=== PATIENT | female | born 1955 | race Caucasian/White ===

== ENCOUNTER → 2016-08-20 | Outpatient (CLI) | payer BC | END | disposition home or self-care (01) | LOC: LABWHC1 09:41 | PROVIDERS: ATTEND Family Medicine | DX: R73.09 Other abnormal glucose (principal) | CPT/HCPCS: 36415; 82947 ==

== ENCOUNTER → 2016-10-12 | Outpatient (CLI) | payer BC ==
--- NOTE | 2016-10-13 07:38 | MM ---
Reason for exam: screening (asymptomatic). Last mammogram was performed 1 year and 3 months ago. History: Patient is postmenopausal. Benign left mammotome panel of the left breast, January 26, 2008. Benign left mammotome panel of the left breast, May 01, 2007. Took hormonal contraceptives for 2 years beginning at age 18. Physical Findings: A clinical breast exam by your physician is recommended on an annual basis and results should be correlated with mammographic findings. MG 3D Screening Mammo W/Cad Bilateral CC and MLO view(s) were taken. Prior study comparison: June 30, 2015, bilateral MG screening mammo w CAD. January 31, 2014, bilateral MG screening mammo w CAD. There are scattered fibroglandular densities. Finding: There are typically benign round, regional calcifications in the left breast. Previous mammotome biopsy in the left breast times two. There is no discrete abnormality. ASSESSMENT: Benign, BI-RAD 2 RECOMMENDATION: Routine screening mammogram of both breasts in 1 year.
== END ==
LOC: RADMAMWWP 11:30
PROVIDERS: ATTEND Obstetrics & Gynecology
DX: Z12.31 Encounter for screening mammogram for malignant neoplasm of breast (principal)
CPT/HCPCS: 77063; G0202

== ENCOUNTER → 2016-12-15 | Outpatient (CLI) | payer BC ==
[2016-12-15 09:09] LABS: CH 28.1; CHCM 33.6; HCT 43.2 % (34.0-46.0); HDW 2.65; HGB 13.7 gm/dL (11.4-16.0); MCH 26.7 pg (25.0-35.0); MCHC 31.8 g/dL (31.0-37.0); Mean Platelet Volume 7.6; RBC 5.14 m/uL (3.80-5.40); RDW 14.1 % (11.5-15.5); WBC 7.5 k/uL (3.8-10.6)
[2016-12-15 09:31] LABS: ALT 43 U/L (9-52); AST 22 U/L (14-36); Alkaline Phosphatase 96 U/L (38-126); Anion Gap 13 mmol/L; Blood Urea Nitrogen 19 mg/dL (7-17); Calcium 9.6 mg/dL (8.4-10.2); Carbon Dioxide 24 mmol/L (22-30); Chloride 100 mmol/L (98-107); Cholesterol 177 mg/dL (<200); Glucose 115 mg/dL (74-99); Magnesium 1.8 mg/dL (1.6-2.3); Non-African American GFR(MDRD) >60 (>60 ml/min/1.73 sqM); Potassium 3.7 mmol/L (3.5-5.1); Sodium 137 mmol/L (137-145); Total Bilirubin 0.5 mg/dL (0.2-1.3); Triglycerides 164 mg/dL (<150)
[2016-12-15 10:54] LABS: HDL Cholesterol 52 mg/dL (40-60)
== END | disposition home or self-care (01) ==
LOC: LABWHC1 08:26
PROVIDERS: ATTEND Family Medicine
DX: E78.00 Pure hypercholesterolemia, unspecified (principal); I10 Essential (primary) hypertension; E66.01 Morbid (severe) obesity due to excess calories
CPT/HCPCS: 36415; 80053; 80061; 83735; 84443; 85027

== ENCOUNTER → 2017-03-21 | Outpatient (CLI) | payer BC ==
--- NOTE | 2017-03-22 12:01 | NM ---
EXAMINATION TYPE: NM thyroid image w uptake DATE OF EXAM: 03/22/2017 COMPARISON: NONE HISTORY: Thyroid nodule TECHNIQUE: After the intravenous administration of 11.3 mCi Tc 99m Sodium Pertechnetate, thyroid imag ing is performed 10 minutes post injection. Thyroid iodine uptake is calculated after the oral admini stration of20.8 NM uCi I-131 capsule. FINDINGS: There is normal distribution of activity throughout the gland. The 4 hour iodine uptake is calculated at 8% (normal range 8-14%). The 24-hour iodine uptake is calculated at 21.1% (normal rang e 15-35%). IMPRESSION: 1. Normal uptake. No definite hot or cold defects within the thyroid. Correlate with ultrasound as cl inically warranted
== END | disposition home or self-care (01) ==
LOC: RADNMMAIN 10:29
PROVIDERS: ATTEND Family Medicine
DX: E04.1 Nontoxic single thyroid nodule (principal)
CPT/HCPCS: 78014; A9528; A9512

== ENCOUNTER → 2017-07-12 | Outpatient (CLI) | payer BC ==
[2017-07-12 09:27] LABS: Basophils % (A) 1 %; Eosinophils # (A) 0.1 k/uL (0-0.7); Eosinophils % (A) 1 %; HCT 39.6 % (34.0-46.0); HGB 12.9 gm/dL (11.4-16.0); Lymphocytes # (A) 2.5 k/uL (1.0-4.8); Lymphocytes % (A) 33 %; MCHC 32.7 g/dL (31.0-37.0); MCV 82.7 fL (80.0-100.0); Mean Platelet Volume 7.4; Monocytes # (A) 0.3 k/uL (0-1.0); Monocytes % (A) 4 %; Neutrophils # (A) 4.6 k/uL (1.3-7.7); Neutrophils % (A) 60 %; Platelet Count 298 k/uL (150-450); RBC 4.79 m/uL (3.80-5.40); RDW 13.9 % (11.5-15.5); WBC 7.7 k/uL (3.8-10.6)
[2017-07-12 09:36] LABS: ALT 49 U/L (9-52); AST 21 U/L (14-36); Albumin 3.7 g/dL (3.5-5.0); Alkaline Phosphatase 78 U/L (38-126); Anion Gap 12 mmol/L; Blood Urea Nitrogen 13 mg/dL (7-17); Calcium 9.1 mg/dL (8.4-10.2); Carbon Dioxide 28 mmol/L (22-30); Chloride 99 mmol/L (98-107); Cholesterol 157 mg/dL (<200); Glucose 127 mg/dL (74-99); HDL Cholesterol 49 mg/dL (40-60); LDL Cholesterol,Calculated 81 mg/dL (0-99); Potassium 4.5 mmol/L (3.5-5.1); Sodium 139 mmol/L (137-145); Total Bilirubin 0.3 mg/dL (0.2-1.3); Total Protein 6.4 g/dL (6.3-8.2); Triglycerides 136 mg/dL (<150)
[2017-07-12 17:09] LABS: Hemoglobin A1C 6.8 % (4.0-6.0)
== END | disposition home or self-care (01) ==
LOC: LABWHC1 08:35
PROVIDERS: ATTEND Family Medicine
DX: E78.5 Hyperlipidemia, unspecified (principal); I10 Essential (primary) hypertension
CPT/HCPCS: 36415; 80053; 80061; 82043; 82570; 83036; 84443; 85025

== ENCOUNTER → 2018-01-31 | Outpatient (CLI) | payer BC ==
--- NOTE | 2018-01-31 17:18 | BD ---
EXAMINATION TYPE: Axial Bone Density DATE OF EXAM: 01/31/2018 COMPARISON: 06.30.2015 CLINICAL HISTORY: 62 YR OLD FEMALE.....ICD-10 CODE: M89.9 DISORDER OF BONE Height: 59.9 Weight: 241 FRAX RISK QUESTIONS: History of Fracture in Adulthood: YES RISK FACTORS HISTORY OF: HX OF RIB FRACTURES.....> 48 YRS OLD Surgery to Spine YES FUSION WITH HARDWARE TO L4 THRU S1 When: AT AGE 60 Diet low in dairy products/other sources of calcium: NO Postmenopausal woman: YES AT AGE 48 MEDICATIONS: Additional Medications: BP MEDS, PROZAC, REFLUX MEDS, STATINS FOR CHOLESTEROL, CALCIUM AND VIT D Additional History: DIABETIC, DIET CONTROLLED EXAM MEASUREMENTS: Bone mineral densitometry was performed using the [employer] System. Bone mineral density about the R hip (g/cm2): 1.263 Bone mineral density about the L hip (g/cm2): 1.212 T Score values are as follows: -----R Neck: 0.5 -----L Neck: -0.3 -----R Total: 2.0 -----L Total: 1.6 Bone mineral density has: Decreased -1.7% since study of: 06.30.2015 Bone mineral density about the L Wrist (g/cm2): 0.642 T Score values are as follows: -----Dist. R+U: 2.8 -----Prox. R+U: 0.8 -----Radius total: 0.4 Bone mineral density FIRST SCAN OF FOREARM FOR THIS PATIENT FRAX%s: THERE IS A 9.8% CHANCE OF A MAJOR OSTEOPOROTIC FX AND A 0.3% FOR HIP FX....PROBABILITY OF F X IN 10 YRS TIME IMPRESSION: Normal (Values between +1 and -1 indicate normal bone mass). Consider repeating this study in 5 year s or sooner if there is some new clinical indication. NOTE: T-SCORE=SD OF THE YOUNG ADULT MEAN.
--- NOTE | 2018-02-02 10:56 | MM ---
Reason for exam: screening (asymptomatic). Last mammogram was performed 1 year and 4 months ago. History: Patient is postmenopausal. Benign left mammotome panel of the left breast, January 26, 2008. Benign left mammotome panel of the left breast, May 01, 2007. Took hormonal contraceptives for 2 years beginning at age 18. Physical Findings: A clinical breast exam by your physician is recommended on an annual basis and results should be correlated with mammographic findings. MG 3D Screening Mammo W/Cad Bilateral CC and MLO view(s) were taken. XCCL view(s) were taken of the right breast. Prior study comparison: October 12, 2016, bilateral MG 3d screening mammo w/cad. July 15, 2015, left breast MG 3d work up w/cad LT. There are scattered fibroglandular densities. Finding: There are typically benign round, regional calcifications in the anterior position of the left breast. Previous mammotome biopsy in the left breast. Asymmetric breast tissue in the left breast. There is no discrete abnormality. ASSESSMENT: Benign, BI-RAD 2 RECOMMENDATION: Routine screening mammogram of both breasts in 1 year.
== END | disposition home or self-care (01) ==
LOC: RADBDWWP 07:45
PROVIDERS: ATTEND Obstetrics & Gynecology
DX: Z12.31 Encounter for screening mammogram for malignant neoplasm of breast (principal); Z13.820 Encounter for screening for osteoporosis; M85.80 Other specified disorders of bone density and structure, unspecified site
CPT/HCPCS: 77063; 77067; 77080

== ENCOUNTER 2019-01-22 17:34 | Inpatient (IN) | payer MEDICARE ==
--- NOTE | 2019-01-22 17:44 | ED ---
Chest Pain HPI - General Chief Complaint: Chest Pain Stated Complaint: chest heaviness/SOB/lightheaded Time Seen by Provider: 01/22/19 17:43 Source: patient, RN notes reviewed, old records reviewed Mode of arrival: wheelchair Limitations: no limitations - History of Present Illness Initial Comments: This is a 63-year-old female the ER for evaluation. Presents today for evaluation of chest pain shows have history of risk factors for heart disease but no prior cardiac history herself. No recent travel history no sick contacts. No fever cough or congestion. Patient has not had prior significant symptoms before she is complaining of exertional shortness of breath as well. Chest pains classic left-sided. Going on for about a week MD Complaint: chest pain -: hour(s) Onset: during rest Pain Location: substernal, left chest Severity: mild Severity scale (1-10): 3 Quality: aching Improves With: nothing Worsens With: nothing Anginal Symptoms: dyspnea Treatments Prior to Arrival: none - Related Data Home Medications Medication Instructions Recorded Confirmed Albuterol Inhaler [Ventolin Hfa 2 puff INHALATION RT-QID PRN 01/22/19 01/22/19 Inhaler] Aspirin [[place] Aspirin EC] 81 mg PO DAILY 01/22/19 01/22/19 Cholecalciferol [Vitamin D3 (25 1,000 unit PO DAILY 01/22/19 01/22/19 Mcg = 1000 Iu)] Terrie C 500mg 500 mg PO DAILY 01/22/19 01/22/19 FLUoxetine HCL [PROzac] 40 mg PO DAILY 01/22/19 01/22/19 Ibuprofen [Motrin] 600 mg PO BID 01/22/19 01/22/19 Lansoprazole [Prevacid] 15 mg PO DAILY 01/22/19 01/22/19 Loratadine [Claritin] 10 mg PO DAILY 01/22/19 01/22/19 Losartan Potassium 100 mg PO DAILY 01/22/19 01/22/19 Simvastatin [Zocor] 20 mg PO DAILY 01/22/19 01/22/19 Triamterene-Hctz 37.5-25Mg 0.5 tab PO DAILY 01/22/19 01/22/19 [Maxzide 37.5-25] Ubidecarenone [Co Q-10] 100 mg PO DAILY 01/22/19 01/22/19 Vits A,C,E/Lutein/Minerals 2 tab PO DAILY 01/22/19 01/22/19 [Ocuvite with Lutein Tablet] Allergies Allergy/AdvReac Type Severity Reaction Status Date / Time No Known Allergies Allergy Verified 01/22/19 21:16 Review of Systems ROS Statement: Those systems with pertinent positive or pertinent negative responses have been documented in the HPI. ROS Other: All systems not noted in ROS Statement are negative. EKG Findings - EKG Comments: EKG Findings:: EKG shows sinus rhythm rate of 70, ID 132, QRS 100, QTC 447 Past Medical History Past Medical History: Diabetes Mellitus, GERD/Reflux, Hyperlipidemia, Hypertension Additional Past Medical History / Comment(s): retinopathy, ostopenia, busitis left hip History of Any Multi-Drug Resistant Organisms: None Reported Past Surgical History: Back Surgery Past Anesthesia/Blood Transfusion Reactions: No Reported Reaction Past Psychological History: Depression Smoking Status: Never smoker Past Alcohol Use History: None Reported Past Drug Use History: None Reported - Past Family History Mother Family Medical History: Congestive Heart Failure (CHF) Father Family Medical History: Cancer, COPD Brother(s) Family Medical History: Coronary Artery Disease (CAD) Additional Family Medical History / Comment(s): both brothers had CABG Son(s) Family Medical History: Hypertension Additional Family Medical History / Comment(s): valve replaced General Exam Limitations: no limitations General appearance: alert, in no apparent distress Head exam: Present: atraumatic, normocephalic, normal inspection Eye exam: Present: normal appearance, PERRL, EOMI. Absent: scleral icterus, conjunctival injection, periorbital swelling ENT exam: Present: normal exam, mucous membranes moist Neck exam: Present: normal inspection. Absent: tenderness, meningismus, lymphadenopathy Respiratory exam: Present: normal lung sounds bilaterally. Absent: respiratory distress, wheezes, rales, rhonchi, stridor Cardiovascular Exam: Present: regular rate, normal rhythm, normal heart sounds. Absent: systolic murmur, diastolic murmur, rubs, gallop, clicks GI/Abdominal exam: Present: soft, normal bowel sounds. Absent: distended, tenderness, guarding, rebound, rigid Extremities exam: Present: normal inspection, full ROM, normal capillary refill. Absent: tenderness, pedal edema, joint swelling, calf tenderness Back exam: Present: normal inspection Neurological exam: Present: alert, oriented X3, CN II-XII intact Psychiatric exam: Present: normal affect, normal mood Skin exam: Present: warm, dry, intact, normal color. Absent: rash Course Vital Signs 01/22/19 01/22/19 17:38 20:00 Temperature 98.5 F 98.3 F Pulse Rate 85 86 Respiratory 18 18 Rate Blood Pressure 141/84 119/69 O2 Sat by Pulse 99 97 Oximetry Chest Pain MDM - MDM 63 female the ER for evasive chest no significant cardiac risk factors patient will be admitted for cardiac observation Critical Care Time Critical Care Time: Yes Total Critical Care Time: 31 Disposition Clinical Impression: Chest pain Disposition: ADMITTED IP TO THIS HOSP Condition: Undetermined Is patient prescribed a controlled substance at d/c from ED?: No
[2019-01-22 18:38] LABS: ALT 28 U/L (9-52); AST 23 U/L (14-36); African American GFR (CKD) >90 (>60 ml/min/1.73 sqM); Albumin 4.1 g/dL (3.5-5.0); Alkaline Phosphatase 92 U/L (38-126); Anion Gap 11 mmol/L; Blood Urea Nitrogen 13 mg/dL (7-17); Calcium 9.3 mg/dL (8.4-10.2); Carbon Dioxide 24 mmol/L (22-30); Chloride 102 mmol/L (98-107); Glucose 206 mg/dL (74-99); Magnesium 1.8 mg/dL (1.6-2.3); Sodium 137 mmol/L (137-145); Total Bilirubin 0.3 mg/dL (0.2-1.3)
[2019-01-22 18:41] LABS: INR 0.9 (<1.2); Partial Thromboplastin Time 22.6 sec (22.0-30.0); Prothrombin Time 9.9 sec (9.0-12.0)
[2019-01-22 19:04] LABS: Basophils % (A) 0 %; Eosinophils # (A) 0.1 k/uL (0-0.7); Eosinophils % (A) 1 %; HCT 41.7 % (34.0-46.0); HGB 13.8 gm/dL (11.4-16.0); Lymphocytes % (A) 28 %; MCH 26.9 pg (25.0-35.0); MCHC 33.2 g/dL (31.0-37.0); MCV 81.1 fL (80.0-100.0); Mean Platelet Volume 7.8; Monocytes # (A) 0.4 k/uL (0-1.0); Monocytes % (A) 5 %; Neutrophils # (A) 4.8 k/uL (1.3-7.7); Neutrophils % (A) 65 %; Platelet Count 267 k/uL (150-450); RBC 5.14 m/uL (3.80-5.40); RDW 14.5 % (11.5-15.5); WBC 7.4 k/uL (3.8-10.6)
--- NOTE | 2019-01-22 19:15 | XR ---
EXAMINATION TYPE: XR chest 2V DATE OF EXAM: 01/22/2019 COMPARISON: NONE HISTORY: Chest heaviness and shortness of breath. TECHNIQUE: Frontal and lateral views of the chest are obtained. FINDINGS: Overlying EKG leads are present. There is no focal air space opacity, pleural effusion, or pneumothorax seen. The cardiac silhouette size is within normal limits. The osseous structures are intact. IMPRESSION: No acute cardiopulmonary process.
[2019-01-22] MEDS ORDERED: HEPARIN SODIUM,PORCINE 5,000 UNIT/ML 1 ML VIAL IV PRN (19:41)
[2019-01-22] MEDS ORDERED: NITROGLYCERIN SL TABS 0.4 MG TAB SUBLINGUAL PRN (19:41)
[2019-01-22] MEDS ORDERED: HEPARIN SODIUM,PORCINE 5,000 UNIT/ML 1 ML VIAL IV ONE (19:41)
[2019-01-22] MEDS ORDERED: ASPIRIN 81 MG PO STA (19:41)
[2019-01-22] MEDS ORDERED: HEPARIN SOD,PORK IN 0.45% NACL 25,000 UNIT in 0.45% NACL 1 250ML.BAG IV SCH (19:45)
[2019-01-22] MEDS ORDERED: ALBUTEROL NEBULIZED 2.5 MG/3 ML INHALATION PRN (21:51)
[2019-01-22] MEDS ORDERED: IBUPROFEN 600 MG TAB PO STA (22:23)
[2019-01-22] MEDS: ATORVASTATIN 10 MG TAB PO SCH (22:27)
[2019-01-23 06:50] LABS: Glucose,Whole Blood 106 mg/dL (75-99)
[2019-01-23 06:57] LABS: Mean Platelet Volume 7.8; Platelet Count 240 k/uL (150-450)
[2019-01-23 06:59] LABS: Cholesterol 147 mg/dL (<200); HDL Cholesterol 50 mg/dL (40-60); LDL Cholesterol,Calculated 65 mg/dL (0-99); Triglycerides 160 mg/dL (<150)
[2019-01-23] MEDS ORDERED: AMINOPHYLLINE 500 MG/20 ML VIAL IV PRN (08:49)
[2019-01-23] MEDS ORDERED: CAFFEINE CITRATE 60 MG/3 ML VIAL IV PRN (08:49)
[2019-01-23] MEDS ORDERED: ATORVASTATIN 80 MG TAB PO SCH (09:00)
[2019-01-23] MEDS ORDERED: SODIUM CHLORIDE 0.9% IV ONE (09:00)
[2019-01-23] MEDS ORDERED: ASPIRIN 81 MG PO SCH (09:00)
[2019-01-23] MEDS ORDERED: TRIAMTERENE-HCTZ 37.5-25MG 1 EACH TAB PO SCH (09:00)
[2019-01-23] MEDS ORDERED: ASPIRIN 325 MG TAB PO SCH (09:00)
[2019-01-23] MEDS ORDERED: DIPYRIDAMOLE IV ONE (09:00)
--- NOTE | 2019-01-23 10:22 | P.CRDCN ---
History of Present Illness History of present illness: This is a pleasant 63-year-old female past medical history significant for hypertension, dyslipidemia, gastroesophageal reflux and diet-controlled diabetes mellitus. She denies personal history of coronary artery disease however she has significant family history of premature coronary artery disease with her parents and both brothers. We have been asked to see her in [facility] secondary to chest discomfort. She states last week she was at her primary care physician's office and underwent an EKG which she was told was abnormal. She is scheduled to follow with no office with Dr. Young on February 08 secondary to the abnormal EKG. She states prior to that time she had not had any Chest discomfort or shortness of breath to speak of. EKG from the office was reviewed and reveals evidence of lead misplacement. She states yesterday she was out shopping in the morning and noticed she was becoming mildly diaphoretic with activity which is somewhat normal for her however it seemed to be excessive yesterday. Later in the day while she was at home she was walking around her yard and she started feeling short of breath and a heavy pressure sensation in the midsternal region. She thought this was possibly related to asthma so she went in the house and took a couple of puffs of her inhaler. However this did not relieve her symptoms therefore she decided to come to the hospital for further evaluation. In total her symptoms of chest discomfort lasted approximately 20 minutes and slowly started to subside in route to the hospital. She denies radiation of the discomfort to the arm, back, neck or jaw. She denies associated dizziness, palpitations, nausea, vomiting, diaphoresis or cough. Her shortness of breath persisted. Upon arrival she was given aspirin and Motrin. No further symptoms of chest discomfort or shortness of breath she is seen and examined resting comfortably in bed. EKG on admission reveals sinus mechanism with left axis deviation. Chest x-ray is negative for an acute cardiopulmonary process. Laboratory data reviewed, WBC 7.4, hemoglobin 13.8, platelets 240, sodium 137, potassium 4.0, creatinine 0.58, magnesium 1.8, cardiac enzymes negative 3, proBNP 21, LDL 65 and HDL 50. Current cardiac medications include aspirin 81 mg daily, losartan 100 mg daily, simvastatin 20 mg daily and triamterene/HCTZ 37.5/25 mg daily. At the time of my exam: CONSTITUTIONAL: Denies fever. Denies chills. EYES: Denies blurred vision. Denies vision changes. Denies eye pain. EARS, NOSE, MOUTH & THROAT: Denies headache. Denies sore throat. Denies ear pain. CARDIOVASCULAR: Denies chest pain. Denies shortness of breath. Denies orthopnea. Denies PND. Denies palpitations. RESPIRATORY: Denies cough. GASTROINTESTINAL: Denies abdominal pain. Denies diarrhea. Denies constipation. Denies nausea. Denies vomiting. MUSCULOSKELETAL: Denies myalgias. INTEGUMENTARY: Denies pruitis. Denies rash. NEUROLOGIC: Denies numbness. Denies tingling. Denies weakness. PSYCHIATRIC: Denies anxiety. Denies depression. ENDOCRINE: Denies fatigue. Denies weight change. Denies polydipsia. Denies polyurina. GENITOURINARY: Denies burning, hematuria or urgency with micturation. HEMATOLOGIC: Denies history of anemia. Denies bleeding. Blood pressure 114/67 heart rate 75 afebrile maintaining oxygen saturation on room air GENERAL: This is a 63-year-old female in no apparent distress at the time of my examination. Morbidly obese. HEENT: Head is atraumatic, normocephalic. Pupils are equal, round. Sclerae anicteric. Conjunctivae are clear. Mucous membranes of the mouth are moist. Neck is supple. There is no jugular venous distention. No carotid bruit is heard. LUNGS: Clear to auscultation no wheezes, rales or rhonchi. No chest wall tenderness is noted on palpation or with deep breathing. HEART: Regular rate and rhythm without murmurs, rubs or gallops. S1 and S2 heard. ABDOMEN: Soft, nontender. Bowel sounds are heard. No organomegaly noted. EXTREMITIES: No evidence of peripheral edema and no calf tenderness noted. VASCULAR: Radial and dorsalis pedis pulses palpated, no evidence of clubbing. NEUROLOGIC: Patient is awake, alert and oriented x3. ASSESSMENT Chest pain associated with shortness of breath, atypical for angina. An acute coronary event has been ruled out. Hypertension Dyslipidemia Diabetes mellitus Gastroesophageal reflux disease Family history of premature coronary artery disease Morbid obesity, BMI 46 PLAN An acute coronary event has been ruled out. Check d-dimer. Obtain 2-D echocardiogram and Doppler study to assess cardiac structure and function. Perform Persantine stress test to assess for reversible cardiac ischemia. Thank you kindly for this consultation. Nurse Practitioner note has been reviewed, I agree with a documented findings and plan of care. Patient was seen and examined. Past Medical History Past Medical History: Diabetes Mellitus, GERD/Reflux, Hyperlipidemia, Hypertension Additional Past Medical History / Comment(s): retinopathy, ostopenia, busitis left hip History of Any Multi-Drug Resistant Organisms: None Reported Past Surgical History: Back Surgery, Tubal Ligation Past Anesthesia/Blood Transfusion Reactions: No Reported Reaction Past Psychological History: Depression Smoking Status: Never smoker Past Alcohol Use History: None Reported Past Drug Use History: None Reported - Past Family History Mother Family Medical History: Congestive Heart Failure (CHF) Father Family Medical History: Cancer, COPD Brother(s) Family Medical History: Coronary Artery Disease (CAD) Additional Family Medical History / Comment(s): both brothers had CABG Son(s) Family Medical History: Hypertension Additional Family Medical History / Comment(s): valve replaced Medications and Allergies Home Medications Medication Instructions Recorded Confirmed Type Albuterol Inhaler [Ventolin Hfa 2 puff INHALATION RT-QID PRN 01/22/19 01/22/19 History Inhaler] Aspirin [[place] Aspirin EC] 81 mg PO DAILY 01/22/19 01/22/19 History Cholecalciferol [Vitamin D3 (25 1,000 unit PO DAILY 01/22/19 01/22/19 History Mcg = 1000 Iu)] Terrie C 500mg 500 mg PO DAILY 01/22/19 01/22/19 History FLUoxetine HCL [PROzac] 40 mg PO DAILY 01/22/19 01/22/19 History Ibuprofen [Motrin] 600 mg PO BID 01/22/19 01/22/19 History Lansoprazole [Prevacid] 15 mg PO DAILY 01/22/19 01/22/19 History Loratadine [Claritin] 10 mg PO DAILY 01/22/19 01/22/19 History Losartan Potassium 100 mg PO DAILY 01/22/19 01/22/19 History Simvastatin [Zocor] 20 mg PO DAILY 01/22/19 01/22/19 History Triamterene-Hctz 37.5-25Mg 0.5 tab PO DAILY 01/22/19 01/22/19 History [Maxzide 37.5-25] Ubidecarenone [Co Q-10] 100 mg PO DAILY 01/22/19 01/22/19 History Vits A,C,E/Lutein/Minerals 2 tab PO DAILY 01/22/19 01/22/19 History [Ocuvite with Lutein Tablet] Allergies Allergy/AdvReac Type Severity Reaction Status Date / Time No Known Allergies Allergy Verified 01/22/19 21:16 Physical Exam Vitals: Vital Signs Temp Pulse Pulse Resp BP BP Pulse Ox 01/23/19 07:58 97 01/23/19 04:00 98.4 F 75 16 114/67 99 01/22/19 23:39 98.5 F 86 18 142/72 95 01/22/19 21:05 97.6 F 72 16 151/80 97 01/22/19 20:00 98.3 F 86 18 119/69 97 01/22/19 17:38 98.5 F 85 18 141/84 99 Intake and Output 01/22/19 01/23/19 01/23/19 22:59 06:59 14:59 Other: Voiding Method Toilet Toilet # Voids 2 Weight 107.955 kg Results 01/23/19 06:28 01/22/19 18:14 Cardiac Enzymes 01/22/19 01/22/19 01/23/19 Range/Units 18:14 18:14 01:37 AST 23 (14-36) U/L Troponin I <0.012 <0.012 (0.000-0.034) ng/mL 01/23/19 Range/Units 06:28 AST (14-36) U/L Troponin I <0.012 (0.000-0.034) ng/mL Coagulation 01/22/19 01/23/19 Range/Units 18:14 01:37 PT 9.9 (9.0-12.0) sec APTT 22.6 47.2 H (22.0-30.0) sec Lipids 01/23/19 Range/Units 06:28 Triglycerides 160 H (<150) mg/dL Cholesterol 147 (<200) mg/dL HDL Cholesterol 50 (40-60) mg/dL CBC 01/22/19 01/23/19 Range/Units 18:14 06:28 WBC 7.4 (3.8-10.6) k/uL RBC 5.14 (3.80-5.40) m/uL Hgb 13.8 (11.4-16.0) gm/dL Hct 41.7 (34.0-46.0) % Plt Count 267 240 (150-450) k/uL Comprehensive Metabolic Panel 01/22/19 Range/Units 18:14 Sodium 137 (137-145) mmol/L Potassium 4.0 (3.5-5.1) mmol/L Chloride 102 (98-107) mmol/L Carbon Dioxide 24 (22-30) mmol/L BUN 13 (7-17) mg/dL Creatinine 0.58 (0.52-1.04) mg/dL Glucose 206 H (74-99) mg/dL Calcium 9.3 (8.4-10.2) mg/dL AST 23 (14-36) U/L ALT 28 (9-52) U/L Alkaline Phosphatase 92 (38-126) U/L Total Protein 7.0 (6.3-8.2) g/dL Albumin 4.1 (3.5-5.0) g/dL Current Medications Generic Name Dose Route Start Last Admin Trade Name Freq PRN Reason Stop Dose Admin Albuterol Sulfate 2.5 mg 01/22/19 21:51 Ventolin Nebulized INHALATION RT-QID PRN Shortness Of Breath Aspirin 81 mg 01/23/19 09:00 Aspirin PO DAILY [facility] Atorvastatin Calcium 10 mg 01/22/19 22:00 01/22/19 22:27 Lipitor PO 10 mg HS DUSTY Administration Fluoxetine HCl 40 mg 01/23/19 09:00 Prozac PO DAILY [facility] Heparin Sodium (Porcine) 0 unit 01/22/19 19:41 Heparin IV Q6HR PRN Low PTT Protocol Heparin Sodium/Sodium Chloride 250 mls @ 9.997 mls/hr 01/22/19 19:45 01/22/19 20:07 25,000 unit/ Sodium Chloride IV 9.26 units/kg/hr .Q24H DUSTY 9.997 mls/hr Administration Protocol 9.26 UNITS/KG/HR Loratadine 10 mg 01/23/19 09:00 Claritin PO DAILY [facility] Losartan Potassium 100 mg 01/23/19 09:00 Cozaar PO DAILY [facility] Nitroglycerin 0.4 mg 01/22/19 19:41 Nitrostat SUBLINGUAL Q5M PRN Chest Pain Triamterene/HCTZ 0.5 each 01/23/19 09:00 Maxzide-25 PO DAILY DUSTY Intake and Output 01/22/19 01/23/19 01/23/19 22:59 06:59 14:59 Other: Voiding Method Toilet Toilet # Voids 2 Weight 107.955 kg 01/23/19 06:28 01/22/19 18:14
[2019-01-23] MEDS ORDERED: AMINOPHYLLINE 250 MG/10 ML VIAL IV ONE (11:35)
[2019-01-23 12:32] LABS: Glucose,Whole Blood 112 mg/dL (75-99)
[2019-01-23] MEDS: FLUoxetine HCL 20 MG CAP PO SCH (12:37)
[2019-01-23] MEDS: LOSARTAN 50 MG TAB PO SCH (12:37)
[2019-01-23] MEDS: LORATADINE 10 MG TAB PO SCH (12:38)
--- NOTE | 2019-01-23 12:44 | NM ---
EXAMINATION TYPE: NM stress persantine cardiolit DATE OF EXAM: 01/23/2019 COMPARISON: NONE HISTORY: Chest pain TECHNIQUE: Patient received 9.7 and 26.2 mCi technetium 99m Cardiolite intravenously protocol with 61 .5 mg Persantine IV. Persantine reverse with 100 mg Aminophyllin IV. FINDINGS: Review of stress and rest SPECT images demonstrates decreased reaffirms aquatic along anterior wall o f the left ventricle on stress as compared to rest images towards the base of the heart. Gated jay sis shows normal wall motion with an estimated left ventricular ejection fraction of 60 %. IMPRESSION: Pharmacologically induced left ventricular myocardial ischemia
[2019-01-23] MEDS ORDERED: ACETAMINOPHEN TAB 325 MG TAB PO STA (13:28)
--- NOTE | 2019-01-23 13:50 | ECHOF ---
Referral Reason:cp MEASUREMENTS -------- HEIGHT: 152.4 cm WEIGHT: 108.0 kg BP: 152/84 RVIDd: 2.6 cm (< 3.3) IVSd: 1.5 cm (0.6 - 1.1) LVIDd: 3.6 cm (3.9 - 5.3) LVPWd: 1.0 cm (0.6 - 1.1) IVSs: 1.6 cm LVIDs: 2.6 cm LVPWs: 1.5 cm Ao Diam: 3.5 cm (2.0 - 3.7) AV Cusp: 2.0 cm (1.5 - 2.6) LA Diam: 3.3 cm (2.7 - 3.8) MV EXCURSION: 16.659 mm (> 18.000) MV EF SLOPE: 58 mm/s (70 - 150) EPSS: 0.6 cm MV E Shyam: 1.03 m/s MV DecT: 253 ms MV A Shyam: 0.96 m/s MV E/A Ratio: 1.07 FINDINGS -------- Sinus rhythm. This was a technically difficult study with suboptimal views. LV size, wall thickness and systolic function are normal, with an EF greater than 55%. There is mil d concentric left ventricular hypertrophy. There is normal global left ventricular contractility. The right ventricle is normal in size and function. The left atrium is normal in size. The right atrium is normal in size. Lumason used Interatrial and interventricular septum intact. The aortic valve is trileaflet, and appears structurally normal. No aortic stenosis or regurgitation. Normal appearing mitral valve. The tricuspid valve appears structurally normal. No regurgitation noted There is no evidence of p ulmonary hypertension. The pulmonic valve was not well visualized. The aortic root, ascending aorta and aortic arch are normal. The pericardium is normal. CONCLUSIONS -------- 1. Sinus rhythm. 2. This was a technically difficult study with suboptimal views. 3. LV size, wall thickness and systolic function are normal, with an EF greater than 55%. 4. There is mild concentric left ventricular hypertrophy. 5. There is normal global left ventricular contractility. 6. The right ventricle is normal in size and function. 7. The left atrium is normal in size. 8. The right atrium is normal in size. 9. Lumason used 10. Interatrial and interventricular septum intact. 11. The aortic valve is trileaflet, and appears structurally normal. No aortic stenosis or regurgitat ion. 12. Normal appearing mitral valve. 13. The tricuspid valve appears structurally normal. 14. No regurgitation noted 15. There is no evidence of pulmonary hypertension. 16. The pulmonic valve was not well visualized. 17. The aortic root, ascending aorta and aortic arch are normal. 18. The pericardium is normal. HAMMERER TAB: Jeffrey Boone RDCS
--- NOTE | 2019-01-23 14:08 | EST ---
EXERCISE STRESS AGE: 63 SEX: F HT: 60" WT: 238 PROTOCOL: Persantine Cardiolite Stress Test HEART RATE REST: 72 BLOOD PRESSURE REST: 170/90 MAXIMUM HEART RATE ACHIEVED: 92 MAXIMUM BLOOD PRESSURE: 190/85 INDICATIONS: Chest pain, shortness of breath. CLINICAL INFORMATION: Baseline EKG revealed normal sinus rhythm, leftward axis, no acute changes. With Persantine administration heart rate changed from 72-92 beats per minute, blood pressure changed from 170/90 to 190/85. EKG remained unremarkable. Patient did not have any angina. By EKG criteria, this is an unremarkable Lexiscan stress test. Patient was hypertensive. The nuclear scan results which are more pertinent will be reported by the radiologist. MMODL / IJN: [id number] /
[2019-01-23] MEDS ORDERED: ENOXAPARIN 100 MG/ML SYRINGE SQ STA (15:19)
[2019-01-23] MEDS ORDERED: ALPRAZolam 0.25 MG TAB PO PRN (15:20)
[2019-01-23] MEDS ORDERED: ALPRAZolam 0.5 MG TAB PO PRN (15:20)
[2019-01-23] MEDS: SODIUM CHLORIDE 0.9% 1,000 ML IV SCH (16:01)
[2019-01-23] MEDS: amLODIPine 5 MG TAB PO SCH (16:29)
[2019-01-23 16:40] LABS: Glucose,Whole Blood 130 mg/dL (75-99)
[2019-01-23 19:57] LABS: Glucose,Whole Blood 133 mg/dL (75-99)
--- NOTE | 2019-01-23 20:05 | P.HPIM ---
History of Present Illness H&P Date: 01/23/19 Chief Complaint: Chest pain Rebecca Holder is a 63 yo F with PMH significant for HTN, HLD, T2DM, asthma, GERD who presented to [facility] ED after experiencing substernal chest pressure yesterday. She states she was recently at her PCP office last week and had an EKG that was abnormal so had been referred to Cardiology. Over the past few months she has become more short of breath with activity, and notes two nights ago while shopping she became very short of breath and diaphoretic which resolved with rest. Yesterday pt was walking around her yard and up a hill etc and became diaphoretic and experienced substernal chest pressure so came in to the ED for evaluation. Her symptoms slowly improved with rest on the way to the hospital. She denied chest pain or pain radiating into arm or neck. Pt notes family history of heart disease in both parents and in brother. She is a n onsmoker. In the ED, EKG was unremarkable and troponin negative x3. She currently denies any chest discomfort or shortness of breath. Review of Systems All systems: negative Constitutional: Reports sweats, Denies chills, Denies fever Eyes: denies blurred vision, denies pain Ears, nose, mouth and throat: Denies headache, Denies sore throat Cardiovascular: Reports chest pain, Reports dyspnea on exertion, Denies shortness of breath Respiratory: Denies cough Gastrointestinal: Denies abdominal pain, Denies diarrhea, Denies nausea, Denies vomiting Genitourinary: Denies dysuria, Denies hematuria Musculoskeletal: Denies myalgias Integumentary: Denies pruritus, Denies rash Neurological: Denies numbness, Denies weakness Psychiatric: Denies anxiety, Denies depression Endocrine: Denies fatigue, Denies weight change Past Medical History Past Medical History: Diabetes Mellitus, GERD/Reflux, Hyperlipidemia, Hypertension Additional Past Medical History / Comment(s): retinopathy, ostopenia, busitis left hip History of Any Multi-Drug Resistant Organisms: None Reported Past Surgical History: Back Surgery Past Anesthesia/Blood Transfusion Reactions: No Reported Reaction Past Psychological History: Depression Smoking Status: Never smoker Past Alcohol Use History: None Reported Past Drug Use History: None Reported - Past Family History Mother Family Medical History: Congestive Heart Failure (CHF) Father Family Medical History: Cancer, COPD Brother(s) Family Medical History: Coronary Artery Disease (CAD) Additional Family Medical History / Comment(s): both brothers had CABG Son(s) Family Medical History: Hypertension Additional Family Medical History / Comment(s): valve replaced Medications and Allergies Home Medications Medication Instructions Recorded Confirmed Type Albuterol Inhaler [Ventolin Hfa 2 puff INHALATION RT-QID PRN 01/22/19 01/22/19 History Inhaler] Aspirin [[place] Aspirin EC] 81 mg PO DAILY 01/22/19 01/22/19 History Cholecalciferol [Vitamin D3 (25 1,000 unit PO DAILY 01/22/19 01/22/19 History Mcg = 1000 Iu)] Terrie C 500mg 500 mg PO DAILY 01/22/19 01/22/19 History FLUoxetine HCL [PROzac] 40 mg PO DAILY 01/22/19 01/22/19 History Ibuprofen [Motrin] 600 mg PO BID 01/22/19 01/22/19 History Lansoprazole [Prevacid] 15 mg PO DAILY 01/22/19 01/22/19 History Loratadine [Claritin] 10 mg PO DAILY 01/22/19 01/22/19 History Losartan Potassium 100 mg PO DAILY 01/22/19 01/22/19 History Simvastatin [Zocor] 20 mg PO DAILY 01/22/19 01/22/19 History Triamterene-Hctz 37.5-25Mg 0.5 tab PO DAILY 01/22/19 01/22/19 History [Maxzide 37.5-25] Ubidecarenone [Co Q-10] 100 mg PO DAILY 01/22/19 01/22/19 History Vits A,C,E/Lutein/Minerals 2 tab PO DAILY 01/22/19 01/22/19 History [Ocuvite with Lutein Tablet] Allergies Allergy/AdvReac Type Severity Reaction Status Date / Time No Known Allergies Allergy Verified 01/22/19 21:16 Physical Exam Vitals: Vital Signs Temp Pulse Pulse Resp BP BP Pulse Ox 01/23/19 18:58 98.1 F 80 16 126/77 95 01/23/19 16:00 98.3 F 74 16 128/74 99 01/23/19 12:30 98.1 F 71 18 150/104 96 01/23/19 12:00 18 01/23/19 08:00 97.5 F L 72 18 152/84 96 01/23/19 07:58 97 01/23/19 04:00 98.4 F 75 16 114/67 99 01/22/19 23:39 98.5 F 86 18 142/72 95 01/22/19 21:05 97.6 F 72 16 151/80 97 01/22/19 20:00 98.3 F 86 18 119/69 97 Intake and Output 01/23/19 01/23/19 01/23/19 06:59 14:59 22:59 Other: Voiding Method Toilet Toilet Toilet # Voids 2 Constitutional: well developed, well nourished, NAD Head: normocephalic, atraumatic ENT: TMs clear shruthi, nose normal, mucus membranes moist Neck: supple, no thyromegaly, no JVD CV: RRR, no murmur Lungs: clear throughout, normal respiratory effort Abd: soft, nontender, no organomegaly Ext: no cyanosis, clubbing or edema Lymph: no cervical or axillary LAD Neuro: alert and oriented x3, normal mood and affect Results CBC & Chem 7: 01/23/19 06:28 01/22/19 18:14 Labs: Abnormal Lab Results - Last 24 Hours (Table) 01/23/19 01/23/19 01/23/19 Range/Units 01:37 06:28 06:49 APTT 47.2 H (22.0-30.0) sec D-Dimer (<0.60) mg/L FEU POC Glucose (mg/dL) 106 H (75-99) mg/dL Triglycerides 160 H (<150) mg/dL 01/23/19 01/23/19 01/23/19 Range/Units 12:30 12:54 16:38 APTT (22.0-30.0) sec D-Dimer 1.35 H (<0.60) mg/L FEU POC Glucose (mg/dL) 112 H 130 H (75-99) mg/dL Triglycerides (<150) mg/dL Thrombosis Risk Factor Assmnt - Choose All That Apply Any of the Below Risk Factors Present?: Yes Each Factor Represents 1 point: Obesity (BMI >25) Other Risk Factors: Yes Each Risk Factor Represents 2 Points: Age 61-74 years Other congenital or acquired thrombophilia - If yes, enter type in comment: No Thrombosis Risk Factor Assessment Total Risk Factor Score: 3 Thrombosis Risk Factor Assessment Level: Moderate Risk Assessment and Plan (1) Chest pain Current Visit: Yes Status: Acute Code(s): R07.9 - CHEST PAIN, UNSPECIFIED SNOMED Code(s): 26647898 Plan: 1. Chest pain. ACS ruled out. Pt for stress test today per cardiology. Continue cozaar and statin
[2019-01-23] MEDS: METOPROLOL TARTRATE 25 MG TAB PO SCH (20:12)
[2019-01-23] MEDS: ATORVASTATIN 10 MG TAB PO SCH (20:12)
[2019-01-24] MEDS: SODIUM CHLORIDE 0.9% 1,000 ML IV SCH ×2 (06:09→17:12)
[2019-01-24] MEDS: LOSARTAN 50 MG TAB PO SCH (06:16)
[2019-01-24] MEDS: METOPROLOL TARTRATE 25 MG TAB PO SCH ×2 (06:16→17:11)
[2019-01-24] MEDS: LORATADINE 10 MG TAB PO SCH (06:16)
[2019-01-24] MEDS: ATORVASTATIN 10 MG TAB PO SCH (06:17)
[2019-01-24] MEDS: FLUoxetine HCL 20 MG CAP PO SCH (06:17)
[2019-01-24] MEDS: amLODIPine 5 MG TAB PO SCH (06:17)
[2019-01-24 06:49] LABS: Glucose,Whole Blood 133 mg/dL (75-99)
[2019-01-24 08:02] VITALS: RESP 18
[2019-01-24] MEDS ORDERED: LIDOCAINE 1% INJ 10MG/ML (20 ML MDV) ONE (08:52)
[2019-01-24] MEDS ORDERED: HEPARIN SODIUM 1,000 UN/ML (10ML VL) ONE (08:52)
[2019-01-24] MEDS ORDERED: VERAPAMIL 2.5 MG/ML 2 ML AMP ONE (08:52)
[2019-01-24] MEDS ORDERED: IV FLUID CONTINUATION 850 ML IV ONE (08:55)
[2019-01-24] MEDS ORDERED: ASPIRIN 325 MG TAB PO SCH (09:00)
[2019-01-24] MEDS ORDERED: MIDAZOLAM (PF) 2 MG/2 ML VIAL IV ONE (09:24)
[2019-01-24] MEDS ORDERED: LIDOCAINE 1% INJ 10MG/ML (20 ML MDV) SQ ONE (09:27)
[2019-01-24] MEDS: VERAPAMIL SYRINGE (5 MG/10 ML) INTRAARTER ONE ×2 (09:29→09:45)
[2019-01-24] MEDS ORDERED: HEPARIN SODIUM 1,000 UN/ML (10ML VL) IV ONE (09:31)
[2019-01-24] MEDS ORDERED: NITROGLYCERIN 1000MCG/10ML SYRINGE INTRACORON ONE (09:39)
[2019-01-24] MEDS ORDERED: IOPAMIDOL-370 100ML BTL INJ ONE (09:49)
[2019-01-24] MEDS ORDERED: RX INFO: IV CONTRAST WAS GIVEN 1 EACH MISC MISCELLANE PRN (09:52)
[2019-01-24 10:15] VITALS: TEMP 97.7
[2019-01-24 11:46] LABS: Glucose,Whole Blood 166 mg/dL (75-99)
[2019-01-24 16:37] VITALS: BP 125/69; PULSE 60
[2019-01-24 16:38] LABS: Glucose,Whole Blood 120 mg/dL (75-99)
--- NOTE | 2019-01-24 17:25 | CC ---
CARDIAC CATHETERIZATION REPORT DATE OF SERVICE: 01/24/2019 PROCEDURE: Left heart catheterization and coronary angiography. PERFORMED BY: Dr. Kristi Toure. Moderate Conscious sedation for 17 min. CLINICAL INFORMATION: Mrs. Rebecca Holder is a 63-year-old lady with type 2 diabetes, hypertension and obesity who came into the hospital with chest pain, had a Lexiscan stress test which revealed ischemia in the anterior wall and was advised cardiac catheterization after due discussion regarding risks, benefits and options. PROCEDURE NOTE: Under local anesthesia and strict aseptic precautions, a 6-Uzbek introducer was placed in the right radial artery. An Ultimate 1 catheter was used to perform selective coronary angiography of the left coronary artery. Using a JR4 catheter, I performed selective coronary angiography of the right coronary artery. There was some spasm of the ostium of the RCA. Intracoronary nitroglycerin was given and the spasm resolved. There was a residual proximal stenosis of about 30% or so. The LV pressures were checked using a pigtail catheter. LV gram was not performed. The sheath was taken out and TR band applied as per protocol. She was sent to the room in stable condition. Saturation of the fingers of the right hand was 95%. CARDIAC CATHETERIZATION FINDINGS: The left ventricular end-diastolic pressure was 12 to 13 mmHg without any gradient across the aortic valve. CORONARY ANGIOGRAPHY FINDINGS: RIGHT CORONARY ARTERY: This is a dominant vessel. Very proximally, right after the ostium, there is about a 35% narrowing where there was some spasm with the catheter cannulation, but with nitroglycerin the spasm resolved. RCA has a good caliber and distally bifurcates into a large PLV and PDA, both of which supply a fair amount of myocardium. No significant disease. The dominant RCA therefore has a proximal lesion of 30% to 35% with some spasm that resolved with nitroglycerin intracoronary. LEFT MAIN CORONARY ARTERY: Long, patent, disease-free vessel that bifurcates into LAD and circumflex. No significant disease in the left main coronary artery. LEFT ANTERIOR DESCENDING CORONARY ARTERY: Good-caliber vessel extends along the anterior wall, gives off a good-sized diagonal branch in the mid portion, runs all the way to the apex giving septal and diagonal branches. No significant disease in the LAD system. LEFT POSTERIOR CIRCUMFLEX CORONARY ARTERY: Technically a nondominant vessel, gives off a high first obtuse marginal and then gives 2 additional branches that run laterally. These have minor irregularities. No significant disease. The nondominant circumflex therefore has minor irregularities, no significant disease. Left ventriculogram was not performed. FINAL IMPRESSION: This patient has normal filling pressures. No gradient across the aortic valve. She has a right-dominant system with 35% proximal RCA stenosis with catheter-induced spasm that resolved with nitroglycerin. Left system has no significant disease. RECOMMENDATIONS: Findings were discussed with the patient and family. I am recommending aggressive medical therapy with lipid-lowering strategies and increasing the dose of Lipitor and continue the beta marissa. She can be discharged later on today if she remains stable, and I will see her in the office in the next one week. MMODL / IJN: [id number] / EFRAIN
[2019-01-24] MEDS ORDERED: ATORVASTATIN 40 MG TAB PO SCH (21:00)
[2019-01-24] MEDS ORDERED: ATORVASTATIN 10 MG TAB PO SCH (21:00)
--- NOTE | 2019-01-24 22:15 | P.DS ---
Providers Date of admission: 01/23/19 13:24 Expected date of discharge: 01/24/19 Attending physician: Nicho Coulter MD Consults: 01/22/19 19:41 Consult Physician Urgent Consulting Provider: Lul Young Consult Reason/Comments: cp Do you want consulting provider notified?: Yes Primary care physician: Kathrin Jacobson - Discharge Diagnosis(es) (1) Chest pain Status: Acute (2) Coronary artery disease Status: Acute Hospital Course: Rebecca Holder is a 63 yo F with PMH significant for HTN, HLD, T2DM, asthma, GERD who presented to [facility] ED after experiencing substernal chest pressure yesterday. She states she was recently at her PCP office last week and had an EKG that was abnormal so had been referred to Cardiology. Over the past few months she has become more short of breath with activity, and notes two nights ago while shopping she became very short of breath and diaphoretic which resolved with rest. Yesterday pt was walking around her yard and up a hill etc and became diaphoretic and experienced substernal chest pressure so came in to the ED for evaluation. Her symptoms slowly improved with rest on the way to the hospital. She denied chest pain or pain radiating into arm or neck. Pt notes family history of heart disease in both parents and in brother. She is a non smoker. In the ED, EKG was unremarkable and troponin negative x3. She currently denies any chest discomfort or shortness of breath. Pt was admitted to observation to undergo stress test. She underwent a nuclear stress test which did show reversible L ventricular ischemia with pharmacologic stimulation. Pt then underwent cardiac cath on 01/24 which did not reveal any critical lesion but did show R dominant system with 35% RCA proximal stenosis. She was started on lipitor and toprol. Pt was discharged in stable condition without any further episodes of chest pain or shortness of breath. She will follow up with PCP and Cardiology upon discharge. Patient Condition at Discharge: Stable Plan - Discharge Summary Discharge Rx Participant: No New Discharge Prescriptions: New Metoprolol Tartrate [Lopressor] 25 mg PO BID #180 tab Atorvastatin [Lipitor] 40 mg PO HS #90 tab amLODIPine [Norvasc] 5 mg PO DAILY #90 tab Discontinued Simvastatin [Zocor] 20 mg PO DAILY Triamterene-Hctz 37.5-25Mg [Maxzide 37.5-25] 0.5 tab PO DAILY No Action Vits A,C,E/Lutein/Minerals [Ocuvite with Lutein Tablet] 2 tab PO DAILY Ubidecarenone [Co Q-10] 100 mg PO DAILY Cholecalciferol [Vitamin D3 (25 Mcg = 1000 Iu)] 1,000 unit PO DAILY Aspirin [[place] Aspirin EC] 81 mg PO DAILY Albuterol Inhaler [Ventolin Hfa Inhaler] 2 puff INHALATION RT-QID PRN PRN Reason: Shortness Of Breath Losartan Potassium 100 mg PO DAILY Lansoprazole [Prevacid] 15 mg PO DAILY Ibuprofen [Motrin] 600 mg PO BID FLUoxetine HCL [PROzac] 40 mg PO DAILY Loratadine [Claritin] 10 mg PO DAILY Terrie C 500mg 500 mg PO DAILY Discharge Medication List Albuterol Inhaler [Ventolin Hfa Inhaler] 2 puff INHALATION RT-QID PRN 01/22/19 [History] Aspirin [[place] Aspirin EC] 81 mg PO DAILY 01/22/19 [History] Cholecalciferol [Vitamin D3 (25 Mcg = 1000 Iu)] 1,000 unit PO DAILY 01/22/19 [History] Terrie C 500mg 500 mg PO DAILY 01/22/19 [History] FLUoxetine HCL [PROzac] 40 mg PO DAILY 01/22/19 [History] Ibuprofen [Motrin] 600 mg PO BID 01/22/19 [History] Lansoprazole [Prevacid] 15 mg PO DAILY 01/22/19 [History] Loratadine [Claritin] 10 mg PO DAILY 01/22/19 [History] Losartan Potassium 100 mg PO DAILY 01/22/19 [History] Ubidecarenone [Co Q-10] 100 mg PO DAILY 01/22/19 [History] Vits A,C,E/Lutein/Minerals [Ocuvite with Lutein Tablet] 2 tab PO DAILY 01/22/19 [History] Atorvastatin [Lipitor] 40 mg PO HS #90 tab 01/24/19 [Rx] Metoprolol Tartrate [Lopressor] 25 mg PO BID #180 tab 01/24/19 [Rx] amLODIPine [Norvasc] 5 mg PO DAILY #90 tab 01/24/19 [Rx] Follow up Appointment(s)/Referral(s): Julian Toure MD [STAFF PHYSICIAN] - 01/26/19 3:15 pm Kathrin Jacobson MD [Primary Care Provider] - 1-2 days Patient Instructions/Handouts: Chest Pain (ED), Chest Pain (DC), After Radial Heart Catheterization (GEN) Discharge Disposition: HOME SELF-CARE
[2019-01-25] MEDS ORDERED: ASPIRIN 81 MG PO SCH (09:00)
== END 2019-01-24 17:15 | disposition home or self-care (01) | DRG 287 ==
LOC: EC 17:34 → 1SOBS 19:42 → OBSVTOIN 01-23 13:24
PROVIDERS: ADMIT Family Medicine; ATTEND Family Medicine
PROC: B2111ZZ Fluoroscopy of Multiple Coronary Arteries using Low Osmolar Contrast (ICD-10-PCS; 2019-01-24)
PROC: 4A023N7 Measurement of Cardiac Sampling and Pressure, Left Heart, Percutaneous Approach (ICD-10-PCS; principal; 2019-01-24 09:00)
DX: I25.10 Atherosclerotic heart disease of native coronary artery without angina pectoris (principal); Z68.42 Body mass index [BMI] 45.0-49.9, adult; E11.319 Type 2 diabetes mellitus with unspecified diabetic retinopathy without macular edema; E66.01 Morbid (severe) obesity due to excess calories; E78.5 Hyperlipidemia, unspecified; F32.9 Major depressive disorder, single episode, unspecified; I10 Essential (primary) hypertension; J45.909 Unspecified asthma, uncomplicated; K21.9 Gastro-esophageal reflux disease without esophagitis; Z79.82 Long term (current) use of aspirin; Z79.899 Other long term (current) drug therapy; Z82.49 Family history of ischemic heart disease and other diseases of the circulatory system; Z82.5 Family history of asthma and other chronic lower respiratory diseases; M85.80 Other specified disorders of bone density and structure, unspecified site
CPT/HCPCS: 36415; 71046; 78452; 80053; 80061; 83690; 83735; 83880; 84484; 85025; 85049; 85379; 85610; 85730; 93017; 93306; 93458; 94760; 96365; 96376; 99291

== ENCOUNTER 2019-09-10 17:29 | Emergency (ER) | payer MEDICARE ==
[2019-09-10 17:51] VITALS: BP 131/64; PULSE 71; RESP 18; TEMP 97.9
[2019-09-10] MEDS ORDERED: TOPICAL SKIN ADHESIVE 1 EACH AMP TOPICAL ONE (18:07)
[2019-09-10] MEDS ORDERED: DIPH,PERTUS(ACELL)TETVAC-LF 0.5 ML VIAL IM ONE (18:07)
--- NOTE | 2019-09-10 18:21 | ED ---
Wound/Laceration HPI - General Chief Complaint: Wound/Laceration Stated Complaint: finger lac Time Seen by Provider: 09/10/19 17:53 Source: patient, RN notes reviewed, old records reviewed Mode of arrival: ambulatory Limitations: no limitations - History of Present Illness Initial Comments: 64-year-old female presents emergency department today with chief complaint laceration of her left fifth digit on glass at work today. Patient reports that she slices (continued bleeding after she discharge was sent home. Patient reports that it's over the crease of her proximal interphalangeal joint. Patient requires tetanus update. - Related Data Home Medications Medication Instructions Recorded Confirmed Albuterol Inhaler [Ventolin Hfa 2 puff INHALATION RT-QID PRN 01/22/19 01/22/19 Inhaler] Aspirin [[place] Aspirin EC] 81 mg PO DAILY 01/22/19 01/22/19 Cholecalciferol [Vitamin D3 (25 1,000 unit PO DAILY 01/22/19 01/22/19 Mcg = 1000 Iu)] Terrie C 500mg 500 mg PO DAILY 01/22/19 01/22/19 FLUoxetine HCL [PROzac] 40 mg PO DAILY 01/22/19 01/22/19 Ibuprofen [Motrin] 600 mg PO BID 01/22/19 01/22/19 Lansoprazole [Prevacid] 15 mg PO DAILY 01/22/19 01/22/19 Loratadine [Claritin] 10 mg PO DAILY 01/22/19 01/22/19 Losartan Potassium 100 mg PO DAILY 01/22/19 01/22/19 Ubidecarenone [Co Q-10] 100 mg PO DAILY 01/22/19 01/22/19 Vits A,C,E/Lutein/Minerals 2 tab PO DAILY 01/22/19 01/22/19 [Ocuvite with Lutein Tablet] Previous Rx's Medication Instructions Recorded Atorvastatin [Lipitor] 40 mg PO HS #90 tab 01/24/19 Metoprolol Tartrate [Lopressor] 25 mg PO BID #180 tab 01/24/19 amLODIPine [Norvasc] 5 mg PO DAILY #90 tab 01/24/19 Allergies Allergy/AdvReac Type Severity Reaction Status Date / Time No Known Allergies Allergy Verified 09/10/19 17:52 Review of Systems ROS Statement: Those systems with pertinent positive or pertinent negative responses have been documented in the HPI. ROS Other: All systems not noted in ROS Statement are negative. Past Medical History Past Medical History: Diabetes Mellitus, GERD/Reflux, Hyperlipidemia, Hypertension Additional Past Medical History / Comment(s): retinopathy, ostopenia, busitis left hip History of Any Multi-Drug Resistant Organisms: None Reported Past Surgical History: Back Surgery Past Anesthesia/Blood Transfusion Reactions: No Reported Reaction Past Psychological History: Depression Smoking Status: Never smoker Past Alcohol Use History: None Reported Past Drug Use History: None Reported - Past Family History Mother Family Medical History: Congestive Heart Failure (CHF) Father Family Medical History: Cancer, COPD Brother(s) Family Medical History: Coronary Artery Disease (CAD) Additional Family Medical History / Comment(s): both brothers had CABG Son(s) Family Medical History: Hypertension Additional Family Medical History / Comment(s): valve replaced General Exam - General Exam Comments Initial Comments: 64-year-old female. Alert and oriented. No distress. Limitations: no limitations General appearance: alert, in no apparent distress Head exam: Present: atraumatic, normocephalic, normal inspection Eye exam: Present: normal appearance, PERRL, EOMI. Absent: scleral icterus, conjunctival injection, periorbital swelling ENT exam: Present: normal exam, mucous membranes moist Neck exam: Present: normal inspection. Absent: tenderness, meningismus, lymphadenopathy Respiratory exam: Present: normal lung sounds bilaterally. Absent: respiratory distress, wheezes, rales, rhonchi, stridor Cardiovascular Exam: Present: regular rate, normal rhythm, normal heart sounds. Absent: systolic murmur, diastolic murmur, rubs, gallop, clicks GI/Abdominal exam: Present: soft Extremities exam: Present: other (superfiical abrasion over left 5th digit, interphalangeal joint. measures 1cm. Bleeding controlled. ) Back exam: Present: normal inspection Neurological exam: Present: alert, oriented X3, CN II-XII intact Psychiatric exam: Present: normal affect, normal mood Skin exam: Present: warm, dry, intact, normal color. Absent: rash Course Vital Signs 09/10/19 17:48 Temperature 97.9 F Pulse Rate 71 Respiratory 18 Rate Blood Pressure 131/64 O2 Sat by Pulse 99 Oximetry Procedures - Laceration Laceration #1 Indication: laceration Size (cm): 1 Description: linear Pre-repair: wound explored, irrigated extensively Type of Sutures: other (dermabond) Technique: simple, interrupted Patient Tolerated Procedure: well, no complications Medical Decision Making - Medical Decision Making 64-year-old female presents today for a refill her concern for a laceration over the left fifth digit. She cut it on glass. Patient's wound was cleaned, irrigated. Bleeding is well-controlled. The abrasion was closed with Dermabond. Patient has full range of motion of the finger. No tendon involvement of the laceration. It is superficial. Patient advised to monitor for infection. Was given an updated tetanus. Disposition Clinical Impression: Finger laceration Disposition: HOME SELF-CARE Condition: Good Instructions (If sedation given, give patient instructions): Finger Laceration (ED), Skin Adhesive Care (ED) Additional Instructions: About the Dermabond to fall off on its own. Monitor for any signs of infection including redness swelling or drainage. Return to the ED if any alarming signs or symptoms occur. Is patient prescribed a controlled substance at d/c from ED?: No Referrals: Kathrin Jacobson MD [Primary Care Provider] - 1-2 days Time of Disposition: 18:21
== END 2019-09-10 18:50 | disposition home or self-care (01) ==
LOC: EC 17:29
DX: S61.217A Laceration without foreign body of left little finger without damage to nail, initial encounter (principal); K21.9 Gastro-esophageal reflux disease without esophagitis; E78.5 Hyperlipidemia, unspecified; I10 Essential (primary) hypertension; F32.9 Major depressive disorder, single episode, unspecified; M85.80 Other specified disorders of bone density and structure, unspecified site; E11.319 Type 2 diabetes mellitus with unspecified diabetic retinopathy without macular edema; Z79.1 Long term (current) use of non-steroidal anti-inflammatories (NSAID); Z79.82 Long term (current) use of aspirin; Z79.899 Other long term (current) drug therapy; Z23 Encounter for immunization; W25.XXXA Contact with sharp glass, initial encounter; Y92.69 Other specified industrial and construction area as the place of occurrence of the external cause
CPT/HCPCS: 12001; 90471; 90715; 99283

== ENCOUNTER → 2020-06-09 | Outpatient (CLI) | payer MEDICARE ==
--- NOTE | 2020-06-10 14:26 | MM ---
Reason for exam: screening (asymptomatic). Last mammogram was performed 2 years and 4 months ago. History: Patient is postmenopausal. Benign left mammotome panel of the left breast, January 26, 2008. Benign left mammotome panel of the left breast, May 01, 2007. Took hormonal contraceptives for 2 years beginning at age 18. Physical Findings: A clinical breast exam by your physician is recommended on an annual basis and results should be correlated with mammographic findings. MG 3D Screening Mammo W/Cad Bilateral CC and MLO view(s) were taken. Prior study comparison: January 31, 2018, bilateral MG 3d screening mammo w/cad. October 12, 2016, bilateral MG 3d screening mammo w/cad. There are scattered fibroglandular densities. Previous mammotome biopsy in the left breast. No significant changes when compared with prior studies. ASSESSMENT: Benign, BI-RAD 2 RECOMMENDATION: Routine screening mammogram of both breasts in 1 year.
== END | disposition home or self-care (01) ==
LOC: RADMAMWWP 12:53
PROVIDERS: ATTEND Family Medicine
DX: Z12.31 Encounter for screening mammogram for malignant neoplasm of breast (principal)
CPT/HCPCS: 77063; 77067

== ENCOUNTER 2021-03-09 09:24 | Emergency (ER) | payer MEDICARE ==
[2021-03-09 09:29] VITALS: TEMP 98.6
[2021-03-09] MEDS ORDERED: SODIUM CHLORIDE 0.9% 1,000 ML IV STA (10:07)
--- NOTE | 2021-03-09 10:32 | ED ---
General Adult HPI - General Chief complaint: ENT Stated complaint: ear & facial swelling Time Seen by Provider: 03/09/21 09:33 Source: patient, RN notes reviewed Mode of arrival: ambulatory Limitations: no limitations - History of Present Illness Initial comments: 65-year-old female with a past medical history of diabetes mellitus, hyperlipidemia, hypertension presents to the emergency room for right-sided facial swelling. Patient states last night she started to have swelling below her right ear. She states she took Motrin and went to bed. When she woke up this morning it was more swollen and involved the lobe of her ear. Patient states it is slightly uncomfortable but denies any pain. Patient denies fevers or chills. Patient denies any ear pain.Patient has no other complaints at this time including shortness of breath, chest pain, abdominal pain, nausea or vomiting, headache, or visual changes. - Related Data Home Medications Medication Instructions Recorded Confirmed Aspirin [Cass Aspirin EC] 81 mg PO DAILY 01/22/19 03/09/21 Cholecalciferol [Vitamin D3 (25 2,000 unit PO DAILY 01/22/19 03/09/21 Mcg = 1000 Iu)] Terrie C 500mg 500 mg PO DAILY 01/22/19 03/09/21 Ibuprofen [Motrin] 600 mg PO BID 01/22/19 03/09/21 Lansoprazole [Prevacid] 15 mg PO DAILY 01/22/19 03/09/21 Loratadine [Claritin] 10 mg PO DAILY 01/22/19 03/09/21 Losartan Potassium 100 mg PO DAILY 01/22/19 03/09/21 Ubidecarenone [Co Q-10] 100 mg PO DAILY 01/22/19 03/09/21 Vits A,C,E/Lutein/Minerals 1 tab PO DAILY 01/22/19 03/09/21 [Ocuvite with Lutein Tablet] Glimepiride [Amaryl] 2 mg PO AC-BID 03/09/21 03/09/21 Metoprolol Tartrate [Lopressor] 25 mg PO DAILY 03/09/21 03/09/21 [place]-3 Fatty Acids/Fish Oil [Fish 1 cap PO DAILY 03/09/21 03/09/21 Oil 1,000 mg Softgel] Sertraline [Zoloft] 50 mg PO DAILY 03/09/21 03/09/21 Previous Rx's Medication Instructions Recorded Atorvastatin [Lipitor] 40 mg PO HS #90 tab 01/24/19 amLODIPine [Norvasc] 5 mg PO DAILY #90 tab 01/24/19 Amoxicillin/Potassium Clav 1 tab PO Q12HR #20 tab 03/09/21 [Augmentin 875-125 Tablet] Allergies Allergy/AdvReac Type Severity Reaction Status Date / Time No Known Allergies Allergy Verified 03/09/21 12:21 Review of Systems ROS Statement: Those systems with pertinent positive or pertinent negative responses have been documented in the HPI. ROS Other: All systems not noted in ROS Statement are negative. Past Medical History Past Medical History: Diabetes Mellitus, GERD/Reflux, Hyperlipidemia, Hypertension Additional Past Medical History / Comment(s): retinopathy, ostopenia, busitis left hip History of Any Multi-Drug Resistant Organisms: None Reported Past Surgical History: Back Surgery Past Anesthesia/Blood Transfusion Reactions: No Reported Reaction Past Psychological History: Depression Smoking Status: Never smoker Past Alcohol Use History: None Reported Past Drug Use History: None Reported - Past Family History Mother Family Medical History: Congestive Heart Failure (CHF) Father Family Medical History: Cancer, COPD Brother(s) Family Medical History: Coronary Artery Disease (CAD) Additional Family Medical History / Comment(s): both brothers had CABG Son(s) Family Medical History: Hypertension Additional Family Medical History / Comment(s): valve replaced General Exam Limitations: no limitations General appearance: alert, in no apparent distress Head exam: Present: atraumatic Eye exam: Present: normal appearance, PERRL, EOMI. Absent: scleral icterus, conjunctival injection ENT exam: Present: normal exam, normal oropharynx, mucous membranes moist, TM's normal bilaterally. Absent: normal external ear exam (Very slight swelling noted to the lobe of the auricle) Neck exam: Present: normal inspection, full ROM. Absent: tenderness Respiratory exam: Present: normal lung sounds bilaterally. Absent: respiratory distress, wheezes Cardiovascular Exam: Present: regular rate, normal rhythm, normal heart sounds GI/Abdominal exam: Present: soft, normal bowel sounds. Absent: distended, tenderness Neurological exam: Present: alert Course Vital Signs 03/09/21 09:27 Temperature 98.6 F Pulse Rate 71 Respiratory 20 Rate Blood Pressure 150/65 O2 Sat by Pulse 99 Oximetry Medical Decision Making - Medical Decision Making Vital signs stable. CBC CMP unremarkable. Glucose is slightly elevated at 234 however patient does have a history of diabetes. CT of the soft tissue neck shows mild edema of the right parotid gland, correlate for right-sided peritonitis. Patient will be given Augmentin. Patient can be discharged home to follow-up with primary care. Will return for any worsening symptoms. - Lab Data Result diagrams: 03/09/21 10:11 03/09/21 10:11 Lab Results 03/09/21 03/09/21 03/09/21 Range/Units 10:11 10:11 10:11 WBC 6.2 (3.8-10.6) k/uL RBC 4.77 (3.80-5.40) m/uL Hgb 13.5 (11.4-16.0) gm/dL Hct 39.3 (34.0-46.0) % MCV 82.2 (80.0-100.0) fL MCH 28.2 (25.0-35.0) pg MCHC 34.3 (31.0-37.0) g/dL RDW 14.7 (11.5-15.5) % Plt Count 212 (150-450) k/uL MPV 8.6 Neutrophils % 66 % Lymphocytes % 26 % Monocytes % 5 % Eosinophils % 1 % Basophils % 1 % Neutrophils # 4.1 (1.3-7.7) k/uL Lymphocytes # 1.6 (1.0-4.8) k/uL Monocytes # 0.3 (0-1.0) k/uL Eosinophils # 0.1 (0-0.7) k/uL Basophils # 0.0 (0-0.2) k/uL Sodium 134 L (137-145) mmol/L Potassium 4.2 (3.5-5.1) mmol/L Chloride 101 (98-107) mmol/L Carbon Dioxide 25 (22-30) mmol/L Anion Gap 8 mmol/L BUN 15 (7-17) mg/dL Creatinine 0.57 (0.52-1.04) mg/dL Est GFR (CKD-EPI)AfAm >90 (>60 ml/min/1.73 sqM) Est GFR (CKD-EPI)NonAf >90 (>60 ml/min/1.73 sqM) Glucose 234 H (74-99) mg/dL Plasma Lactic Acid Gianfranco 1.6 (0.7-2.0) mmol/L Calcium 9.1 (8.4-10.2) mg/dL Total Bilirubin 0.3 (0.2-1.3) mg/dL AST 22 (14-36) U/L ALT 21 (4-34) U/L Alkaline Phosphatase 73 (38-126) U/L Total Protein 6.4 (6.3-8.2) g/dL Albumin 3.7 (3.5-5.0) g/dL Disposition Clinical Impression: Parotitis Disposition: HOME SELF-CARE Condition: Good Instructions (If sedation given, give patient instructions): Sialoadenitis (ED) Additional Instructions: Please take antibiotic as directed. Use sour candies. Take Motrin and Tylenol for discomfort. Follow-up with your doctor and ENT. Return to the emergency room for any worsening symptoms. Prescriptions: Amoxicillin/Potassium Clav [Augmentin 875-125 Tablet] 1 tab PO Q12HR #20 tab Is patient prescribed a controlled substance at d/c from ED?: No Referrals: Kathrin Jacobson MD [Primary Care Provider] - 1-2 days Siddharth Espinosa MD [STAFF PHYSICIAN] - 1-2 days Aman Brown MD [STAFF PHYSICIAN] - 1-2 days Time of Disposition: 12:36
[2021-03-09 10:35] LABS: ALT 21 U/L (4-34); AST 22 U/L (14-36); African American GFR (CKD) >90 (>60 ml/min/1.73 sqM); Albumin 3.7 g/dL (3.5-5.0); Alkaline Phosphatase 73 U/L (38-126); Anion Gap 8 mmol/L; Blood Urea Nitrogen 15 mg/dL (7-17); Calcium 9.1 mg/dL (8.4-10.2); Carbon Dioxide 25 mmol/L (22-30); Chloride 101 mmol/L (98-107); Glucose 234 mg/dL (74-99); Non-African American GFR(CKD) >90 (>60 ml/min/1.73 sqM); Potassium 4.2 mmol/L (3.5-5.1); Sodium 134 mmol/L (137-145); Total Bilirubin 0.3 mg/dL (0.2-1.3); Total Protein 6.4 g/dL (6.3-8.2)
[2021-03-09 10:45] LABS: Basophils % (A) 1 %; Eosinophils # (A) 0.1 k/uL (0-0.7); Eosinophils % (A) 1 %; HCT 39.3 % (34.0-46.0); HGB 13.5 gm/dL (11.4-16.0); Lymphocytes # (A) 1.6 k/uL (1.0-4.8); Lymphocytes % (A) 26 %; MCH 28.2 pg (25.0-35.0); MCHC 34.3 g/dL (31.0-37.0); MCV 82.2 fL (80.0-100.0); Mean Platelet Volume 8.6; Monocytes # (A) 0.3 k/uL (0-1.0); Monocytes % (A) 5 %; Neutrophils # (A) 4.1 k/uL (1.3-7.7); Neutrophils % (A) 66 %; Platelet Count 212 k/uL (150-450); RBC 4.77 m/uL (3.80-5.40); RDW 14.7 % (11.5-15.5); WBC 6.2 k/uL (3.8-10.6)
--- NOTE | 2021-03-09 11:59 | CT ---
EXAMINATION TYPE: CT soft tissue neck w con DATE OF EXAM: 03/09/2021 COMPARISON: None HISTORY: Swelling to right side of neck and face CT DLP: 404.8 mGycm CONTRAST: CT scan of the neck is performed with IV Contrast, patient injected with 100 ml mL of Isovue 300. Contrast enhanced CT of the neck was performed from the skull base through the lung apices. AIRWAY: The supraglottic, glottic, and subglottic portions of the airway appear patent and free of mass. SALIVARY GLANDS: There is mild edema of the right parotid gland with. Carotid strandy attenuation. C orrelate for right-sided Parotitis. The left parotid gland is unremarkable. No intraparotid lesions a re evident. No evidence for sialolithiasis. The submandibular are free of mass or inflammatory proces s. THYROID GLAND: No nodules or masses seen. LYMPH NODES: No adenopathy seen greater than 1cm. LUNG APICES: No nodule or mass is seen. OTHER: Vascular structures are patent. No significant degenerative change of the cervical spine. N o abscess seen. IMPRESSION: Correlate for right-sided Parotitis.
[2021-03-09] MEDS ORDERED: AMOXIC-POT CLAV 875MG STARTER PACK 2 TAB BTL PO STA (12:36)
[2021-03-09 12:50] VITALS: BP 128/59; PULSE 68; RESP 18
== END 2021-03-09 12:50 | disposition home or self-care (01) ==
LOC: EC 09:24
DX: K11.20 Sialoadenitis, unspecified (principal); I10 Essential (primary) hypertension; E11.9 Type 2 diabetes mellitus without complications; E78.5 Hyperlipidemia, unspecified; K21.9 Gastro-esophageal reflux disease without esophagitis; Z79.1 Long term (current) use of non-steroidal anti-inflammatories (NSAID); Z79.82 Long term (current) use of aspirin; Z79.84 Long term (current) use of oral hypoglycemic drugs; Z79.899 Other long term (current) drug therapy; F32.9 Major depressive disorder, single episode, unspecified
CPT/HCPCS: 99284 ×2; 96360 ×2; 96361 ×3; 36415; 80053; 83605; 85025; 70491; Q9967

== ENCOUNTER → 2021-11-25 | Outpatient (CLI) | payer MEDICARE ==
[2021-11-25 15:00] LABS: HCT 41.2 % (37.2-46.3); HGB 13.2 g/dL (12.0-15.0); MCH 26.4 pg (27.0-32.0); MCV 82.4 fL (80.0-97.0); Mean Platelet Volume 11.1 fL (9.5-12.2); NRBC Per 100 WBC 0 /100 WBCS (0.0-0.0); Platelet Count 208 X 10*3/uL (140-440); RDW 14.3 % (11.5-14.5)
[2021-11-25 18:44] LABS: BUN/Creat Ratio 18.06 Ratio (12.00-20.00); Globulin 2.5 g/dL (1.6-3.3); LDL Cholesterol,Calculated 52.1 mg/dL (0.0-131.0); Magnesium 1.9 mg/dL (1.5-2.4)
[2021-11-25 18:45] LABS: ALT 41 U/L (8-44); AST 22 U/L (13-35); African American GFR (CKD) 99.7 (60.0-200.0); Albumin 4.1 g/dL (3.8-4.9); Albumin/Globulin Ratio 1.69 (1.60-3.17); Alkaline Phosphatase 70 U/L (41-126); C Reactive Protein <0.30 mg/dL (0.00-0.80); Calcium 9.3 mg/dL (8.7-10.3); Carbon Dioxide 25.8 mmol/L (20.0-27.5); Chloride 98 mmol/L (96-109); Glucose 186 mg/dL (70-110); Potassium 4.6 mmol/L (3.5-5.5); Sodium 136 mmol/L (135-145); Total Protein 6.6 g/dL (6.2-8.2)
[2021-11-25 19:43] LABS: Immunoglobulin E 3.79 IU/mL (0.00-114.00)
[2021-11-26 19:44] LABS: Clam IgE <0.10 kU/L; Egg White IgE <0.10 kU/L; Peanut IgE <0.10 kU/L; Shrimp IgE <0.10 kU/L; Soybean IgE <0.10 kU/L; Walnut IgE (Food) <0.10 kU/L
[2021-11-26 20:57] LABS: Codfish IgE <0.10 kU/L; Scallop IgE <0.10 kU/L
== END | disposition home or self-care (01) ==
LOC: LABWHC1 09:51
PROVIDERS: ATTEND Family Medicine
DX: I10 Essential (primary) hypertension (principal); E11.9 Type 2 diabetes mellitus without complications; E78.5 Hyperlipidemia, unspecified; E66.01 Morbid (severe) obesity due to excess calories
CPT/HCPCS: 36415; 80053; 80061; 82785; 83036; 83735; 84443; 84480; 85027; 86003; 86140

== ENCOUNTER → 2022-01-25 | Outpatient (CLI) | payer MEDICARE ==
--- NOTE | 2022-01-27 17:37 | MM ---
Reason for Exam: Screening (asymptomatic). Last mammogram was performed 1 year(s) and 7 month(s) ago. Patient History: Menarche at age 9. First Full-Term at age 21. Postmenopausal. Hormonal Contraceptives for 2 years from age 18 until age 20. 01/26/2008, Benign Core Biopsy on the left side. 05/01/2007, Benign Core Biopsy on the left side. Risk Values: Madeline 5 year model risk: 2.5%. NCI Lifetime model risk: 8.1%. Prior Study Comparison: 10/12/2016 Bilateral Screening Mammogram, [facility]. 01/31/2018 Bilateral Screening Mammogram, [facility]. 06/09/2020 Bilateral Screening Mammogram, [facility]. Tissue Density: There are scattered fibroglandular densities. Findings: There is focal asymmetry within the anterior upper outer left breast, stable from comparison. No suspicious groups of microcalcifications, spiculated or lobular masses, architectural distortion or other secondary signs of malignancy are mammographically apparent. Overall Assessment: Benign, BI-RAD 2 Management: Screening Mammogram of both breasts in 1 year. A negative mammogram report should not preclude additional follow up of suspicious palpable abnormalities. Patient should continue monthly self breast exam. A clinical breast exam by your physician is recommended on an annual basis and results should be correlated with mammographic findings. Electronically signed and approved by: Roberto Vargas D.O. Radiologis
== END | disposition home or self-care (01) ==
LOC: RADMAMWWP 15:09
PROVIDERS: ATTEND Family Medicine
DX: Z12.31 Encounter for screening mammogram for malignant neoplasm of breast (principal); Z78.0 Asymptomatic menopausal state
CPT/HCPCS: 77063; 77067

== ENCOUNTER → 2022-01-29 | Outpatient (CLI) | payer MEDICARE ==
[2022-01-29 14:21] LABS: HCT 42.6 % (37.2-46.3); HGB 13.3 g/dL (12.0-15.0); MCH 25.9 pg (27.0-32.0); MCHC 31.2 g/dL (32.0-37.0); MCV 82.9 fL (80.0-97.0); Mean Platelet Volume 11.3 fL (9.5-12.2); NRBC Per 100 WBC 0 /100 WBCS (0.0-0.0); Platelet Count 242 X 10*3/uL (140-440); RBC 5.14 X 10*6/uL (4.10-5.20); RDW 14.2 % (11.5-14.5); WBC 7.49 X 10*3/uL (4.50-10.00)
[2022-01-29 14:58] LABS: ALT 37 U/L (8-44); AST 25 U/L (13-35); African American GFR (CKD) 95.1 (60.0-200.0); Albumin 4.2 g/dL (3.8-4.9); Albumin/Globulin Ratio 1.71 (1.60-3.17); Alkaline Phosphatase 67 U/L (41-126); BUN/Creat Ratio 18.83 Ratio (12.00-20.00); Blood Urea Nitrogen 14.1 mg/dL (9.0-27.0); Calcium 9.2 mg/dL (8.7-10.3); Carbon Dioxide 21.8 mmol/L (20.0-27.5); Chloride 100 mmol/L (96-109); Chol/HDL Ratio 2.78 Ratio; Creatine Kinase 67 U/L (26-186); Globulin 2.4 g/dL (1.6-3.3); Glucose 182 mg/dL (70-110); Magnesium 1.7 mg/dL (1.5-2.4); Potassium 4.1 mmol/L (3.5-5.5); Sodium 136 mmol/L (135-145); Total Protein 6.6 g/dL (6.2-8.2)
== END | disposition home or self-care (01) ==
LOC: LABWHC1 08:59
PROVIDERS: ATTEND Family Medicine
DX: E11.9 Type 2 diabetes mellitus without complications (principal); E66.01 Morbid (severe) obesity due to excess calories
CPT/HCPCS: 36415; 80053; 80061; 82550; 83735; 84443; 85027; 86803

== ENCOUNTER → 2023-01-06 | Outpatient (CLI) | payer MEDICARE ==
--- NOTE | 2023-01-06 16:51 | P.PN ---
Subjective DATE: [] FOLLOW UP VISIT. Patient with obstructive sleep apnea hypopnea syndrome return to sleep center for follow-up visit. Recently patient had CPAP titration. Patient received new CPAP unit. Today is first visit after patient to started to use new CPAP equipment. Patient was able to use PAP equipment every night for the whole night. The patient does not have significant problems with the mask, PAP pressure and humidification. [place] sleepiness scale is 3, which is normal. I checked information from PAP unit. PAP unit pressure 10-14, average 11.6 cm H2O. Usage is 100 % for more then 4 hours, average 7.5 hours per night. Leak is 8.0 l/m, which is in acceptable range. Apnea Hypopnea Index is 0.7, which is normal. MEDICATIONS:1. Atorvastatin 2. Losartan 3. Sertraline 4. Amlodipine 5. Metoprolol 6. Metformin 7. Glimepiride During physical exam: GENERAL: A pleasant patient without any distress. VITAL SIGNS: BP 142/85, HR 78, RR 18, weight 246.8, temperature 98.0, oxygen saturation at room air 96%. HEENT: PERRLA, EOMI.low position of soft palate, Mallapati 3 . NECK: Supple. No JVD. LUNGS: Clear to percussion and to auscultation. Good air exchange. No wheezing or rhonchi. HEART: S1, S2 regular. ABDOMEN: Soft and nontender.[] EXTREMITIES: No clubbing or cyanosis. ANIMAL ECOLOGIST: Awake, alert, and oriented x3. No focal deficit. Impressions: 1. Obstructive sleep apnea-hypopnea syndrome. Patient demonstrated great compliance with treatment, benefiting from treatment. 2. Obesity. 3. Hypertension. 4. Diabetes mellitus. 5. Hyperlipidemia. 6. History of depression. 7. Status post back surgery. 8. History of acid reflux. Plan: 1. Continue using PAP equipment every night for the whole night. 2. To change air filter at least 1-2 times per month. 3. PAP unit should stay lower then position of the head. 4. Advised patient to remove all remaining water from humidifier canister daily and make it dry after each usage. Refill canister with fresh distilled water before each usage. 5. Sleep hygiene with regular time in bed for at least 8 hours. 6. Precautions related to driving. No driving if feel any sleepiness. 7. I will maintain prescription for PAP supplies including mask, tube, filters. 8. Follow up visit in 6 months or earlier if patient has any problems. 9. Watching and losing weight. Thank you very much for allowing me to participate in the management of your patient. Jerson Adame MD, PhD, FAASM. Diplomat of [place] [employer], Sleep Medicine Board by [place] [employer] Handle Lathe Operator of [facility] [place]
== END ==
LOC: 3 N SLEEP 16:04
PROVIDERS: ATTEND Internal Medicine
DX: G47.33 Obstructive sleep apnea (adult) (pediatric) (principal); E11.9 Type 2 diabetes mellitus without complications; E66.9 Obesity, unspecified; E78.5 Hyperlipidemia, unspecified; F32.A Depression, unspecified; I10 Essential (primary) hypertension; K21.9 Gastro-esophageal reflux disease without esophagitis; Z79.899 Other long term (current) drug therapy; Z79.84 Long term (current) use of oral hypoglycemic drugs; Z98.890 Other specified postprocedural states; Z99.89 Dependence on other enabling machines and devices
CPT/HCPCS: 99212

== ENCOUNTER → 2023-01-26 | Outpatient (CLI) | payer MEDICARE ==
--- NOTE | 2023-01-27 20:32 | MM ---
Reason for Exam: Screening (asymptomatic). Last screening mammogram was performed 12 month(s) ago. Patient History: Menarche at age 9. First Full-Term at age 21. Postmenopausal. Hormonal Contraceptives for 2 years from age 18 until age 20. 01/26/2008, Benign Core Biopsy on the left side. 05/01/2007, Benign Core Biopsy on the left side. Risk Values: Madeline 5 year model risk: 2.5%. NCI Lifetime model risk: 7.7%. Prior Study Comparison: 01/31/2018 Bilateral Screening Mammogram, [facility]. 06/09/2020 Bilateral Screening Mammogram, [facility]. 01/25/2022 Bilateral MG 3D screening mammo w/cad, [facility]. Tissue Density: There are scattered fibroglandular densities. Findings: Analyzed By CAD. 2 microclips anterior left breast from prior biopsies. Global asymmetry near central upper outer quadrant left breast remains unchanged. There is no suspicious group of microcalcifications or new suspicious mass in either breast. Overall Assessment: Benign, BI-RAD 2 Management: Screening Mammogram of both breasts in 1 year. . Patient should continue monthly self-breast exams. A clinical breast exam by your physician is recommended on an annual basis. This exam should not preclude additional follow-up of suspicious palpable abnormalities. Note on Madeline scores and lifetime risk: 1. A Madeline score greater than 3% is considered moderate risk. If this is the case, consider specialist referral to assess eligibility for a risk reducing agent. 2. If overall lifetime risk for the development of breast cancer is 20% or higher, the patient may qualify for future screening with alternating mammogram and breast MRI. Electronically signed and approved by: Kristen Parada M.D. Radiologist
== END | disposition home or self-care (01) ==
LOC: RADMAMWWP 13:46
PROVIDERS: ATTEND Family Medicine
DX: Z12.31 Encounter for screening mammogram for malignant neoplasm of breast (principal); Z78.0 Asymptomatic menopausal state
CPT/HCPCS: 77063; 77067

== ENCOUNTER 2023-03-07 19:51 | Emergency (ER) | payer MEDICARE ==
[2023-03-07] MEDS ORDERED: MORPHINE SULFATE 4 MG/ML SYRINGE IVP STA ×2 (20:00→21:10)
[2023-03-07 20:06] VITALS: TEMP 97.5
--- NOTE | 2023-03-07 20:12 | ED ---
General Adult HPI - General Chief complaint: Fall Stated complaint: FALL Time Seen by Provider: 03/07/23 19:59 Source: EMS Mode of arrival: EMS - History of Present Illness Initial comments: This is a 67-year-old female with a past medical history including diabetes presents emergency department via EMS after a fall. The patient stated that she was on her back deck when she tripped over her dog, hitting the right side of her face on the corner of the table and landing on her right shoulder. The patient reported that her arms were elevated and could not bring her arms down secondary to pain. The patient was in a makeshift sling by EMS on arrival. The patient was diaphoretic likely secondary to pain. The patient denied losing consciousness. The patient denied any other acute pain or complaints other than the right shoulder and right arm. The patient denied any lightheadedness or dizziness. - Related Data Home Medications Medication Instructions Recorded Confirmed Aspirin [[place] Aspirin EC] 81 mg PO DAILY 01/22/19 03/07/23 Cholecalciferol [Vitamin D3 (25 50 mcg PO DAILY 01/22/19 03/07/23 Mcg = 1000 Iu)] Terrie C 500mg 500 mg PO DAILY 01/22/19 03/07/23 Ibuprofen [Motrin] 600 mg PO BID 01/22/19 03/07/23 Lansoprazole [Prevacid] 15 mg PO DAILY 01/22/19 03/07/23 Loratadine [Claritin] 10 mg PO DAILY 01/22/19 03/07/23 Losartan Potassium 100 mg PO DAILY 01/22/19 03/07/23 Ubidecarenone [Co Q-10] 100 mg PO DAILY 01/22/19 03/07/23 Vits A,C,E/Lutein/Minerals 1 tab PO HS 01/22/19 03/07/23 [Ocuvite with Lutein Tablet] Glimepiride [Amaryl] 2 mg PO BID 03/09/21 03/07/23 Metoprolol Tartrate [Lopressor] 25 mg PO DAILY 03/09/21 03/07/23 [place]-3 Fatty Acids/Fish Oil [Fish 1 cap PO DAILY 03/09/21 03/07/23 Oil 1,000 mg Softgel] Sertraline [Zoloft] 50 mg PO DAILY 03/09/21 03/07/23 Acetaminophen Tab [Tylenol Tab] 1,000 mg PO BID 03/07/23 03/07/23 Semaglutide [Rybelsus] 7 mg PO DAILY 03/07/23 03/07/23 metFORMIN HCL 1,000 mg PO BID 03/07/23 03/07/23 Previous Rx's Medication Instructions Recorded Atorvastatin [Lipitor] 40 mg PO HS #90 tab 01/24/19 amLODIPine [Norvasc] 5 mg PO DAILY #90 tab 01/24/19 Allergies Allergy/AdvReac Type Severity Reaction Status Date / Time No Known Allergies Allergy Verified 03/07/23 21:16 Review of Systems ROS Statement: Those systems with pertinent positive or pertinent negative responses have been documented in the HPI. ROS Other: All systems not noted in ROS Statement are negative. Past Medical History Past Medical History: Diabetes Mellitus, GERD/Reflux, Hyperlipidemia, Hypertension Additional Past Medical History / Comment(s): retinopathy, ostopenia, busitis left hip History of Any Multi-Drug Resistant Organisms: None Reported Past Surgical History: Back Surgery Past Anesthesia/Blood Transfusion Reactions: No Reported Reaction Past Psychological History: Depression Smoking Status: Never smoker Past Alcohol Use History: None Reported Past Drug Use History: None Reported - Past Family History Mother Family Medical History: Congestive Heart Failure (CHF) Father Family Medical History: Cancer, COPD Brother(s) Family Medical History: Coronary Artery Disease (CAD) Additional Family Medical History / Comment(s): both brothers had CABG Son(s) Family Medical History: Hypertension Additional Family Medical History / Comment(s): valve replaced General Exam Limitations: no limitations General appearance: alert, in distress (In distress 2/2 right shoulder pain), obese Head exam: Present: normocephalic, other (Contusion, swelling noted to the right lateral orbit) Eye exam: Present: normal appearance, PERRL, EOMI Pupils: Present: normal accommodation ENT exam: Present: normal exam, normal oropharynx, mucous membranes moist Neck exam: Present: normal inspection, full ROM Respiratory exam: Present: normal lung sounds bilaterally Cardiovascular Exam: Present: regular rate, normal rhythm, normal heart sounds GI/Abdominal exam: Present: soft, normal bowel sounds Extremities exam: Present: other (TTP over the right shoulder and right humerus with decreased ROM 2/2 pain, in sling per EMS) Back exam: Present: normal inspection, full ROM Neurological exam: Present: alert, oriented X3, CN II-XII intact Psychiatric exam: Present: normal affect, normal mood Skin exam: Present: warm, dry Course Vital Signs 03/07/23 03/07/23 03/07/23 19:54 22:05 22:10 Temperature 97.5 F L Pulse Rate 63 70 88 Respiratory 20 18 17 Rate Blood Pressure 154/95 166/91 145/91 O2 Sat by Pulse 99 100 89 L Oximetry 03/07/23 22:18 Temperature Pulse Rate 89 Respiratory 18 Rate Blood Pressure 164/102 O2 Sat by Pulse 94 L Oximetry Procedures - Orthopedic Joint Reduction Joint #1 Consent Obtained: verbal consent, written consent Side: right Joint Reduction Location: shoulder Analgesia: procedural sedation Shoulder Technique Used (if applicable): traction/counter-traction Post-Reduction Neuro Exam: intact Post-Reduction Vascular Exam: intact Post Reduction X-Ray Obtained: Yes Post Reduction X-Ray Results: reduced Splint Applied: Yes (sling) Patient Tolerated Procedure: well - Procedural Sedation *Procedural Sedation Start Time: 22:05 *Procedural Sedation Stop Time: 22:14 *Indications: fracture/dislocation reduction *Previous Adverse Reaction to Anesthesia/Sedation?: No * Testing Complete?: No Reason Test Not Complete:: Age > 60 *ASA Class: II *Mallampati Airway Score: 2 *Time of Last PO Intake: 20:00 Preparation: cardiac tech applied, pulse oximeter, capnometry used, supplemental O2 applied, suction/airway equipment at bedside, IV secured IV Propofol Dose (mgs): 100 Complications: hypoventilation Interventions: assist by BVM Patient Tolerated Procedure: well Medical Decision Making - Medical Decision Making Was pt. sent in by a medical professional or institution (, PA, [employer] [facility] [facility], urgent care, hospital, or group home...) When possible be specific @ -No Did you speak to anyone other than the patient for history (EMS, parent, family, police, friend...)? What history was obtained from this source @ -Yes, EMS who stated they did give the patient Toradol for her pain however had continued symptoms. Did you review nursing and triage notes (agree or disagree)? Why? @ -I reviewed and agree with nursing and triage notes Were old charts reviewed (outside hosp., previous admission, EMS record, old EKG, old radiological studies, urgent care reports/EKG's, group home records)? Report findings @ -No old charts were reviewed Differential Diagnosis (chest pain, altered mental status, abdominal pain women, abdominal pain men, vaginal bleeding, weakness, fever, dyspnea, syncope, headache, dizziness, GI bleed, back pain, seizure, CVA, palpatations, mental health)? @ -Right shoulder dislocation, right shoulder fracture, humerus fracture, facial contusion, intracranial hemorrhage EKG interpreted by me (3pts min.). @ -None X-rays interpreted by me (1pt min.). @ -An x-ray of the right shoulder was obtained and was interpreted by myself showing an anterior inferior dislocation of the right shoulder. There was a questionable fracture fragment present posteriorly. The humerus was negative for any fractures. CT interpreted by me (1pt min.). @ -CT of the facial bones was obtained and was interpreted by myself showing sequela of right facial trauma with suspected small hematoma. The globe and orbit is intact. There is no evidence for fracture. U/S interpreted by me (1pt. min.). @ -None done What testing was considered but not performed or refused? (CT, X-rays, U/S, labs)? Why? @ -None What meds were considered but not given or refused? Why? @ -None Did you discuss the management of the patient with other professionals (professionals i.e. , PA, [employer] [facility] [facility], lab, RT, psych nurse, social work assistant, corporate accounting manager, teacher, chief information security officer, bilingual case manager)? Give summary @ -No Was smoking cessation discussed for >3mins.? @ -No Was critical care preformed (if so, how long)? @ -Yes, see above Were there social determinants of health that impacted care today? How? (Homelessness, low income, unemployed, alcoholism, drug addiction, transportation, low edu. Level, literacy, decrease access to med. care, snf, rehab)? @ -No Was there de-escalation of care discussed even if they declined (Discuss DNR or withdrawal of care, Hospice)? DNR status @ -No What co-morbidities impacted this encounter? (DM, HTN, Smoking, COPD, CAD, Cancer, CVA, ARF, Chemo, Hep., AIDS, mental health diagnosis, sleep apnea, morbid obesity)? @ -Sleep apnea, hypertension, diabetes Was patient admitted / discharged? Hospital course, mention meds given and route, prescriptions, significant lab abnormalities, going to OR and other pertinent info. @ -The patient was seen and evaluated emergency department. Physical exam, the patient was resting in bed without any acute distress. Vital signs admission were stable. The patient was in distress secondary to right shoulder pain. Workup was including imaging that showed a right shoulder dislocation and a right facial contusion. The patient did receive conscious sedation and did have successful reduction of the right shoulder. Repeat x-ray showed and confirmed this. The patient was placed in a sling and was observed for 2 hours. The patient was given follow up instructions to take surgery and told to follow-up for further workup and evaluation of her right shoulder. The patient was agreeable to this and all of her questions were answered. The patient was discharged home in stable condition with her family. Undiagnosed new problem with uncertain prognosis? @ -No Drug Therapy requiring intensive monitoring for toxicity (Heparin, Nitro, Insulin, Cardizem)? @ -No Were any procedures done? @ -Yes, conscious sedation and right shoulder reduction Diagnosis/symptom? @ -Fall, right shoulder dislocation, reduced, right facial contusion Acute, or Chronic, or Acute on Chronic? @ -Acute Uncomplicated (without systemic symptoms) or Complicated (systemic symptoms)? @ -Uncomplicated Side effects of treatment? @ -No Exacerbation, Progression, or Severe Exacerbation? @ -No Poses a threat to life or bodily function? How? (Chest pain, [place], IA, pneumonia, PE, COPD, DKA, ARF, appy, cholecystitis, CVA, Diverticulitis, Homicidal, Suicidal, threat to staff... and all critical care pts) @ -No Critical Care Time Critical Care Time: Yes Total Critical Care Time: 31 Disposition Clinical Impression: Shoulder dislocation, Fall, Facial contusion Disposition: HOME SELF-CARE Condition: Stable Instructions (If sedation given, give patient instructions): Shoulder Dislocation (ED), Moderate Sedation (ED), Facial Contusion (ED) Is patient prescribed a controlled substance at d/c from ED?: No Referrals: Raj Coulter MD [Primary Care Provider] - 1-2 days Time of Disposition: 00:20
--- NOTE | 2023-03-07 20:50 | XR ---
EXAMINATION TYPE: XR humerus RT, XR shoulder complete RT DATE OF EXAM: 03/07/2023 8:40 PM CLINICAL INDICATION:Female, 67 years old with history of Trauma; [facility] COMPARISON: None TECHNIQUE: The right humerus was examined in frontal and lateral projections. Shoulder was evaluated in frontal lateral and scapular Y views. FINDINGS/IMPRESSION: 1. Anterior-inferior dislocation of the right shoulder. Questionable fracture fragment present poste riorly. Unclear origin of fracture fragment. No additional fractures. 2. Visualized portions of the chest are unremarkable.
--- NOTE | 2023-03-07 20:58 | CT ---
EXAMINATION TYPE: CT facial bones wo con CT DLP: 1014.4 mGycm, Automated exposure control for dose reduction was used. DATE OF EXAM: 03/07/2023 8:47 PM COMPARISON: None. CLINICAL INDICATION:Female, 67 years old with history of Trauma; [facility], fall TECHNIQUE: Multiple unenhanced axial CT images were obtained of the facial bones soft tissue and bone windows. Coronal, axial and sagittal reformatted images were also provided in soft tissue and bone windows and submitted for interpretation. Additional 3-D reformatted images were obtained on a [employer] workstation. FINDINGS: Right periorbital edema with small suspected hematoma formation 11 mm. The globe is intact. No retroorbital hematoma visualized. There is no evidence of fracture, subluxation or dislocation. The temporal-mandibular joints appear s ymmetric and demonstrate degeneration changes. The visualized portion of the paranasal sinuses appear relatively clear. IMPRESSION: Sequela of right facial trauma with suspected small 11 mm hematoma. The globe and orbit is intact. No evidence for fracture
[2023-03-07] MEDS ORDERED: PROPOFOL 10 MG/ML 20 ML VIAL IV ONE (21:42)
[2023-03-07 22:19] VITALS: RESP 18
--- NOTE | 2023-03-07 23:13 | XR ---
EXAM: XR Right Shoulder Complete, 2 or More Views CLINICAL HISTORY: ITS.REASON XR Reason: Post Reduction TECHNIQUE: Two or more views of the right shoulder. COMPARISON: No relevant prior studies available. FINDINGS: Bones/joints: Unremarkable. No fracture or dislocation on single view. Soft tissues: Unremarkable. IMPRESSION: No fracture or dislocation on single view.
[2023-03-08 00:15] VITALS: BP 140/86; PULSE 87
== END 2023-03-08 00:20 | disposition home or self-care (01) ==
LOC: EC 19:51
DX: S43.014A Anterior dislocation of right humerus, initial encounter (principal); S43.034A Inferior dislocation of right humerus, initial encounter; S05.11XA Contusion of eyeball and orbital tissues, right eye, initial encounter; E11.9 Type 2 diabetes mellitus without complications; I10 Essential (primary) hypertension; K21.9 Gastro-esophageal reflux disease without esophagitis; F32.A Depression, unspecified; Z79.84 Long term (current) use of oral hypoglycemic drugs; Z79.82 Long term (current) use of aspirin; Z79.899 Other long term (current) drug therapy; W01.190A Fall on same level from slipping, tripping and stumbling with subsequent striking against furniture, initial encounter
CPT/HCPCS: 96375 ×2; 23650 ×2; 96374 ×2; 99285 ×2; 96376; 73020; 73030; 73060; 70486; J2270; J2704

== ENCOUNTER → 2023-03-14 | Outpatient (CLI) | payer MEDICARE ==
--- NOTE | 2023-03-14 17:42 | CT ---
EXAMINATION TYPE: CT shoulder RT wo con CT DLP: 899.8 mGycm, Automated exposure control for dose reduction was used. DATE OF EXAM: 03/14/2023 5:29 PM COMPARISON: Radiographs 03/07/2023. CLINICAL INDICATION:Female, 67 years old with history of M25.511, RT shoulder injury on [place] fro m fall. TECHNIQUE: Axial images were obtained of the . Additional coronal and sagittal reformatted images an d soft tissue and bone window were obtained for review. 3-D reconstruction was created on a separate workstation. Contrast used: mL of , Oral contrast used: None FINDINGS: Redemonstration of comminuted fracture of the proximal humerus greater tuberosity as seen on 03/07/2023 radiographs. there is intra-articular extension. Associated soft tissue edema and small joint effusi on. Stress portions of lung are unremarkable. Multilevel degeneration changes of the spine. IMPRESSION: Comminuted fracture of the right humerus greater tuberosity which is similar to 03/07/2023 radiographs given differences in technique. No additional fractures visualized. There is associated s mall joint effusion.
== END | disposition home or self-care (01) ==
LOC: RADCTMAIN 17:00
PROVIDERS: ATTEND Orthopaedic Surgery
DX: S42.251A Displaced fracture of greater tuberosity of right humerus, initial encounter for closed fracture (principal); M25.411 Effusion, right shoulder; R20.2 Paresthesia of skin; X58.XXXA Exposure to other specified factors, initial encounter

== ENCOUNTER → 2024-03-07 | Outpatient (CLI) | payer MEDICARE ==
--- NOTE | 2024-03-11 11:14 | MM ---
Reason for Exam: Screening (asymptomatic). Last mammogram was performed 1 year(s) and 2 month(s) ago. Patient History: Menarche at age 9. First Full-Term at age 21. Postmenopausal. Hormonal Contraceptives for 2 years from age 18 until age 20. 01/26/2008, Benign Core Biopsy on the left side. 05/01/2007, Benign Core Biopsy on the left side. Risk Values: Madeline 5 year model risk: 2.5%. NCI Lifetime model risk: 7.4%. Prior Study Comparison: 06/09/2020 Bilateral Screening Mammogram, [facility]. 01/25/2022 Bilateral MG 3D screening mammo w/cad, [facility]. 01/26/2023 Bilateral MG 3D screening mammo w/cad, [facility]. Tissue Density: The breasts are heterogeneously dense, which may obscure small masses. Findings: Analyzed By CAD. Left breast biopsy clip. Right breast: There is no suspicious group of microcalcifications or new suspicious mass. Left breast: There is no suspicious group of microcalcifications or new suspicious mass. Overall Assessment: Benign, BI-RAD 2 Management: Screening Mammogram of both breasts in [address] [facility] will attempt to contact patient to return for supplemental views and ultrasound if indicated. Patient should continue monthly self-breast exams. A clinical breast exam by your physician is recommended on an annual basis. This exam should not preclude additional follow-up of suspicious palpable abnormalities. Note on Madeline scores and lifetime risk: 1. A Madeline score greater than 3% is considered moderate risk. If this is the case, consider specialist referral to assess eligibility for a risk reducing agent. 2. If overall lifetime risk for the development of breast cancer is 20% or higher, the patient may qualify for future screening with alternating mammogram and breast MRI. Electronically signed and approved by: Rustam Joshua DO
== END | disposition home or self-care (01) ==
LOC: RADMAMWWP 12:31
PROVIDERS: ATTEND Family Medicine
DX: Z12.31 Encounter for screening mammogram for malignant neoplasm of breast
CPT/HCPCS: 77063; 77067